=== PATIENT | female | born 1950 | race Caucasian/White ===

== ENCOUNTER → 2020-01-26 09:17 | Outpatient (BNVA) | payer MEDICARE, OTHER, SELFPAY | PROVIDERS: Family Provider Family Medicine; PCP Family Medicine; Visit Provider Family Medicine | DX: I10 Essential (primary) hypertension (principal); F33.1 Major depressive disorder, recurrent, moderate | CPT/HCPCS: 80053; 80061; 85025 ==

== ENCOUNTER → 2020-02-25 10:23 | Outpatient (BNVA) | payer MEDICARE, OTHER, SELFPAY | PROVIDERS: Family Provider Family Medicine; PCP Family Medicine; Visit Provider Family Medicine | DX: I10 Essential (primary) hypertension (principal); M79.671 Pain in right foot | CPT/HCPCS: 82043 ==

== ENCOUNTER 2020-03-12 07:49 | Outpatient (CLI) | payer MEDICARE, OTHER, SELFPAY ==
--- NOTE | 2020-03-12 08:15 | XR_ITS ---
WS: [id number] Right foot, 3 views, 03/12/2020 Clinical Data: Right heel pain Comparison: None. Findings: No fractures or dislocations are seen. No bone destruction or erosion is noted. The joint spaces and soft tissues are normal. There is an Achilles spur and a plantar spur. XR/XR foot RT min 3V* [id number] Impression: Achilles spur and plantar spur.
== END 2020-03-12 07:50 | disposition home or self-care (01) ==
LOC: RADWPI 07:53
PROVIDERS: Family Provider Family Medicine; PCP Family Medicine; Visit Provider Family Medicine
DX: M79.671 Pain in right foot (principal); M76.61 Achilles tendinitis, right leg
CPT/HCPCS: 73630

== ENCOUNTER → 2020-04-19 10:47 | Outpatient (BNVA) | payer MEDICARE, OTHER, SELFPAY | PROVIDERS: Family Provider Family Medicine; PCP Family Medicine; Visit Provider Family Medicine | DX: I10 Essential (primary) hypertension (principal) | CPT/HCPCS: 80048 ==

== ENCOUNTER → 2020-11-08 10:16 | Outpatient (BNVA) | payer MEDICARE, OTHER, SELFPAY | PROVIDERS: Family Provider Family Medicine; PCP Family Medicine; Visit Provider Podiatrist Foot & Ankle Surgery | DX: Z01.812 Encounter for preprocedural laboratory examination (principal); Z20.822 Contact with and (suspected) exposure to COVID-19 | CPT/HCPCS: 87635 ==

== ENCOUNTER 2020-11-12 05:55 | Day surgery (SDC) | payer MEDICARE, OTHER, SELFPAY ==
--- NOTE | 2020-11-11 | SCC_ITS ---
Procedure Done: Right Achilles tendon repair CPT code 00375 1 second of fluoroscopic guidance, for a cumulative dose of 0.02 mGy, was provided to Dr. Ruff by the radiology department. C-arm images of the RIGHT calcaneus were saved for the patient's permanent record. [facility]
[2020-11-11 14:53] VITALS: BMI 40.7
[2020-11-12] VITALS (11 sets, daily range): BP systolic 117–172; BP diastolic 67–100; PULSE 80–96; RESP 16–20; TEMP 36.3–37.6; O2SAT 92–100
--- NOTE | 2020-11-12 06:23 | P.OP_ITS ---
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 Post-op diagnosis: same Post-op Findings: Right Achilles tendinosis with mucoid degeneration of midsubstance and intratendinous calcifications. Right Hu's deformity. Procedure Done: Right Achilles tendon repair CPT code 08684 Right calcaneus Hu's resection CPT code 70539 Implants: Arthrex speed bridge. 3-0 Vicryl, 3-0 nylon. Specimens removed/disposition: None Pathology: none sent Surgeon: Christopher Ruff D.P.M. Associate Financial Advisor: Bello Anesthesia: General Estimated blood loss: Less than 10 mL Tourniquet time: See intraoperative documentation IV fluids: None Urine output: None Complications: None Condition: stable Disposition: PACU Brief History: Ms. Combs is a pleasant 70-year-old female who has had progressive pain and debilitation of her right Achilles tendon and osseous prominence at her right calcaneus. History of Achilles tendon repair with Carrizales glund's resection at the left lower extremity approximately 10 years ago with success of returned activity. Her right lower extremity has followed suit she has failed formal physical therapy, home physical therapy, offloading, stretching, night splint, anti-inflammatories and accommodative shoes. She would like to have the right lower extremity surgically corrected with debridement of Achilles tendon and resection of calcaneal Hu's deformity. I informed her of risks including pain, bleeding, numbness, infection, bruising, swelling, surgical site dehiscence, Achilles tendon rupture, altered gait and altered mechanics, altered range of motion and strength to the right lower extremity. Need for further surgical intervention. Patient was interviewed preoperatively and found to be n.p.o. since midnight. All questions answered to patient's satisfaction. She is accompanied by her . Informed consent signed by the patient myself and her . I initialed the right lower extremity. Patient wishes to proceed, no guarantees written, expressed or implied. Procedure: Under mild sedation the patient was brought to the operating room and while still on the gurney anesthesia was introduced by the anesthesia service, well-padded thigh tourniquet applied to the right thigh. Patient was then placed prone onto the operative table with appropriate padding and offloading. Right lower extremity was then scrubbed, prepped and draped utilizing normal aseptic technique. Right foot and leg was examined a weighted with an Esmarch bandage and the tourniquet inflated to 350 mmHg at the right thigh. Attention was directed to the right ankle where dorsiflexion was appreciated at 8 degrees. Determination was made to not perform a gastrocnemius recession. Attention was then directed to the Achilles tendon which was palpated noted to be thickened and there was osseous prominence both at the skin as well as proximal to the insertion of the posterior superior lateral aspect of the calcaneal tuberosity. At the medial border of the Achilles tendon at the area of the watershed coursing distally in a fishhook fashion a full-thickness flap was incised with a #15 blade down to peritenon this was reflected laterally. There was thickening and dysmorphic peritenon and Achilles tendon interface this was sharply debrided and passed from the operative field. The Achilles tendon was then reflected off the posterior calcaneus from medial to lateral fashion maintaining a small attachment laterally to maintain length. Achilles tendon was debrided sharply with a #15 blade and pickups of mucoid degeneration, thickening and disorganized collagen with intratendinous calcifications being sharply excised and passed from operative field. Once thorough debridement was performed attention was directed to the posterior calcaneus where Hu's deformity was appreciated as well as insertional Achilles calcifications at the lower one third of the posterior calcaneal tuberosity. A sagittal saw was then utilized to transect the posterior calcaneal Hu's deformity with exostosis with the blade oriented inferior posterior to superior anterior with a bone wedge taken approximately 3 cm x 3 cm x 1 cm this was passed per operative field. All rough edges were smoothed and sharp edges rounded with a hand rasp. Intraoperative fluoroscopy confirmed excellent resection of bony overgrowth and noted to be adequate. Incision site was flushed with copious amounts of sterile saline solution. Next utilizing standard technique per manufacture recommendation and package insert and Achilles speed bridge was utilized with a total of 4 bone anchors with excellent footprint approximately 1.5 cm apart anchoring the Achilles tendon back to bone with excellent bone to tendon interface and tendon out to length. Repair was firm and tested intraoperatively and was able to withstand dorsiflexion of the right ankle with excellent integrity. Incision site was flushed with copious amounts of sterile saline solution. Dogears at the medial lateral border of the Achilles tendon were transected in an oblique direction. Amniotic biologic graft tacked down to the posterior Achilles to reduce inflammation and improve healing and reduce adhesions. This was done utilizing 5-0 Monocryl. Peritenon and subcutaneous tissue closed utilizing 3-0 Vicryl. Skin reapproximated utilizing 3-0 nylon in a horizontal mattress technique. Incision site was dressed with jumpstart, sterile 4 x 4's, Kerlix and application of well-padded multilayer compressive Peck splint with ankle in plantarflexion. Tourniquet was deflated and a prompt hyperemic response was noted to the distal digits of the right foot. Patient was transferred to the PACU with vital signs stable and vascular status intact. Following a period of postoperative monitoring she will be discharged home is to remain strict nonweightbearing and elevate her right foot at all times while at rest she has wheelchair, crutches and knee scooter to facilitate this. She was provided a prescription for hydrocodone to be taken judiciously as needed for pain I advised her to take a baby aspirin this will be 81 mg once daily for DVT prophylaxis. Follows up next week in podiatry clinic Sunday morning. She was provided my cell phone number will call me with any postoperative questions or concerns.
--- NOTE | 2020-11-12 06:23 | W.PM.OPSUD ---
Surgery/Procedure H&P Update DATE OF PROCEDURE: November 12, 2020 DATE H&P PERFORMED: 10/25/20 H&P UPDATE INFORMATION: I have reviewed H&P completed within last 30 days, I have examined patient prior to procedure and H&P is in [facility] on date indicated PREOP DIAGNOSIS: Right Hu's PLANNED PROCEDURE: Operation Date: 11/12/20 07:00 Proposed Procedures p Haglunds Resection [id number] M92.61(Right) - POORNIMA Dubose Gastrocnemius Recession(Right) - POORNIMA Dubose Flexor Hallucis Longus Tendon Transfer(Right) - Christopher Ruff DPM
[2020-11-12] MEDS: sodium chloride 0.9% 1,000 ML 30 ML IV (06:45)
--- NOTE | 2020-11-12 06:54 | ANES.PREANE2 ---
Pre-Anesthetic Assessment Pre-Anesthetic Assessment: Height/Weight: Height 1.7 m Weight 117.934 kg Temp Pulse Resp BP Pulse Ox 99.6 F 91 18 172/100 94 11/12/20 06:28 11/12/20 06:28 11/12/20 06:28 11/12/20 06:28 11/12/20 06:28 Preop Diagnosis: Right Hu's Proposed Procedure: Operation Date: 11/12/20 07:00 Proposed Procedures p Haglunds Resection [id number] M92.61(Right) - Christopher Ruff DPM s Gastrocnemius Recession(Right) - Christopher Ruff DPM s Flexor Hallucis Longus Tendon Transfer(Right) - Christopher Ruff DPM Was Beta John taken within 24 hours: N/A Was Clonidine taken within 24 hours: N/A Last intake: Intake Last Liquid Date 11/11/20 Last Liquid Time 21:30 Last Solid Date 11/11/20 Last Solid Time 19:30 Social: Social History: No alcohol and No tobacco Exam: Pre-Anes Outpt Exam: alert, oriented x 3, clear to auscultation bilaterally and regular rate & rhythm Airway: Submandibular: WNL Cervical ROM: WNL MP: 2 Dentition: Full CV/HEM: CV/HEM: HTN Metabolic: Metabolic: Morbid obesity Neuropsych: Neuropsych: Anxiety and Depression Anesthetic Plan: ASA status: 3 Anesthesia: General Risk of > 500 ml blood loss (7ml/kg in children): No Meds/Allergies Current Medications: Current Medications Generic Name Dose Route Start Last Admin Trade Name Freq PRN Reason Stop Dose Admin Sodium Chloride 1,000 mls @ 30 ml s/hr 11/12/20 06:45 11/12/20 06:45 Sodium Chloride 0.9% IV 30 mls/hr .Q24H TAWNY Administration PFSH Anesthesia PFSH: Medical History (Updated 11/09/20 @ 09:46 by Christopher Ruff DPM) Essential hypertension Surgical History H/O cataract extraction History of cholecystectomy Social History Smoking and tobacco status: never smoked Data Anesthesia Cardiac Studies: No Data to Display
[2020-11-12] MEDS: scopolamine 1.5 Patch 1 PATCH TRANSDERMA (06:58)
--- NOTE | 2020-11-12 08:38 | XR_ITS ---
WS: [id number] Lateral view of the right foot including the calcaneus, 11/12/2020 Clinical Data: post op Comparison: Right foot, 03/12/2020. Findings: The plantar spur is visible. The Achilles spur and posterior superior calcaneus have been revised. XR/XR calcaneus RT min 2V [id number] Impression: Surgery to remove Achilles spur and repair insertion of Achilles tendon.
[2020-11-12] MEDS: ondansetron 2 mg/ML SDV 2 mL 4 MG IVP (08:52)
[2020-11-12] MEDS: metoclopramide 5 mg/mL SDV 2 mL 10 MG IVP ×2 (08:55→09:00)
[2020-11-12] MEDS: dexamethasone 4 mg/mL INJ IVP ×2 (09:05→09:10)
[2020-11-12] MEDS: diphenhydrAMINE 50 mg/mL SDV 1mL 12.5 MG IVP (09:30)
--- NOTE | 2020-11-12 12:25 | ANE.PACU2 ---
Inpatient post-anesthesia follow up: Airway intact: Yes Vital signs: Temperature 97.9 F Pulse Rate 80 Respiratory Rate 18 Blood Pressure 122/75 Pulse Oximetry 93 Oxygen Delivery Me thod Room Air Oxygen Flow Rate 2 Fraction of Inspir ed Oxygen Hydration adequate: Yes Nausea and vomiting: No Pain level: 2 Mental status: Baseline
== END 2020-11-12 10:17 | disposition home or self-care (01) ==
PROVIDERS: PCP Family Medicine; Visit Provider Podiatrist Foot & Ankle Surgery
PROC: (CPT 27654; principal; 2020-11-12 07:00)
PROC: (CPT 27687; 2020-11-12 07:00)
PROC: (CPT 27691; 2020-11-12 07:00)
DX: M76.61 Achilles tendinitis, right leg (principal); M92.61 Juvenile osteochondrosis of tarsus, right ankle; I10 Essential (primary) hypertension; E66.01 Morbid (severe) obesity due to excess calories; Z68.41 Body mass index [BMI] 40.0-44.9, adult; F41.9 Anxiety disorder, unspecified; F32.9 Major depressive disorder, single episode, unspecified
CPT/HCPCS: 27654; 28118; 73650; 76000; 96365; 96374; C1713; C1762; J0360; J0690; J1100; J1200; J2405; J2704; J2710; J2765; J3010; J3490; J7030

== ENCOUNTER 2020-11-25 14:50 | Outpatient (CLI) | payer MEDICARE, OTHER, SELFPAY | END 2020-11-25 14:51 | disposition home or self-care (01) | LOC: SPT 14:51 | PROVIDERS: PCP Family Medicine; Visit Provider Podiatrist Foot & Ankle Surgery | DX: Z46.89 Encounter for fitting and adjustment of other specified devices (principal); M92.61 Juvenile osteochondrosis of tarsus, right ankle | CPT/HCPCS: 97760; L4361 ==

== ENCOUNTER 2021-01-07 11:31 | Outpatient (CLI) | payer MEDICARE, OTHER, SELFPAY | END 2021-01-07 11:32 | disposition home or self-care (01) | LOC: SPT 11:32 | PROVIDERS: PCP Family Medicine; Visit Provider Podiatrist Foot & Ankle Surgery | DX: Z98.890 Other specified postprocedural states (principal) | CPT/HCPCS: L3332 ==

== ENCOUNTER → 2021-03-14 10:12 | Outpatient (BNVA) | payer MEDICARE, OTHER, SELFPAY | PROVIDERS: PCP Family Medicine; Visit Provider Family Medicine Adult Medicine | DX: Z20.822 Contact with and (suspected) exposure to COVID-19 (principal); R06.02 Shortness of breath; R79.81 Abnormal blood-gas level; B34.9 Viral infection, unspecified; I10 Essential (primary) hypertension; Z68.41 Body mass index [BMI] 40.0-44.9, adult | CPT/HCPCS: 80053; 85025; 86141; 87635 ==

== ENCOUNTER → 2021-10-13 08:46 | Outpatient (BNVA) | payer MEDICARE, OTHER, SELFPAY | PROVIDERS: PCP Family Medicine; Visit Provider Family Medicine | DX: I10 Essential (primary) hypertension (principal); F33.1 Major depressive disorder, recurrent, moderate; Z12.31 Encounter for screening mammogram for malignant neoplasm of breast | CPT/HCPCS: 80053; 80061 ==

== ENCOUNTER 2021-12-02 07:45 | Outpatient (CLI) | payer MEDICARE, OTHER, SELFPAY ==
--- NOTE | 2021-12-02 07:57 | MM_ITS ---
WS: [id number] SCREENING 3D TOMOSYNTHESIS DIGITAL MAMMOGRAM WITH CAD HISTORY: screening mammogram COMPARISON: 11/20/2014 and 10/24/2012 Bilateral CC and MLO views submitted. Computer aided detection analyzed. Breast composition: There are scattered areas of fibroglandular density. No suspicious masses, microc alcifications or architectural distortion. Biopsy clip in the posterior medial LEFT breast. MM/[place] [id number] IMPRESSION: BI-RADS: 2-Benign FOLLOW UP: 1 Year Follow-up
== END 2021-12-02 07:46 | disposition home or self-care (01) ==
PROVIDERS: PCP Family Medicine; Visit Provider Family Medicine
DX: Z12.31 Encounter for screening mammogram for malignant neoplasm of breast (principal)
CPT/HCPCS: 77063; 77067

== ENCOUNTER → 2022-03-03 10:53 | Outpatient (BNVA) | payer MEDICARE, OTHER, SELFPAY | PROVIDERS: PCP Family Medicine; Visit Provider Orthopaedic Surgery | DX: W18.30XA Fall on same level, unspecified, initial encounter (principal); S42.201A Unspecified fracture of upper end of right humerus, initial encounter for closed fracture | CPT/HCPCS: 73030; 99203; 99204 ==

== ENCOUNTER 2022-03-06 14:45 | Observation (INO) | payer MEDICARE, OTHER, SELFPAY ==
[2022-03-03 14:41] VITALS: BMI 36.6
[2022-03-06] VITALS (15 sets, daily range): BP systolic 120–157; BP diastolic 65–93; PULSE 69–84; RESP 8–22; TEMP 36.3–36.8; O2SAT 90–97
--- NOTE | 2022-03-06 08:21 | ANES.PREANE2 ---
Pre-Anesthetic Assessment Height/Weight: Height 1.7 m Weight 106.141 kg Temp Pulse Resp BP Pulse Ox O2 Del Method 98.3 F 75 16 157/87 97 03/06/22 08:00 03/06/22 08:00 03/06/22 08:00 03/06/22 08:00 03/06/22 08:00 03/06/22 08:03 Preop Diagnosis: Comminuted fracture right proximal humerus Operation Date: 03/06/22 09:40 Proposed Procedures p Total Reverse Shoulder Arthroplasty 58012/S42.201A(Right) - Yusuf Benedict MD Familial anesthetic complications: PONV Was Beta John taken within 24 hours: Yes Was Clonidine taken within 24 hours: Yes Last intake: Intake Last Liquid Date 03/06/22 Last Liquid Time 21:00 Last Solid Date 03/05/22 Last Solid Time 15:00 Social No alcohol and No tobacco Exam alert, oriented x 3, clear to auscultation bilaterally and regular rate & rhythm Airway Mallampati: Class II Dentition: full CV/HEM Hypertension Metabolic Morbid Obesity Anesthetic Plan ASA status: 2 Anesthesia: General and Regional (specify below) Risk of > 500 ml blood loss (7ml/kg in children): No Medications/Allergies Home Medications Medication Instructions Recorded Confirmed Last Taken Type biotin 10,000 mcg capsule 10,000 mcg PO .ONCE DAILY 11/25/19 03/06/22 03/05/22 History cetirizine 10 mg capsule (Zyrtec) 10 mg PO .ONCE DAILY 11/25/19 03/06/22 03/05/22 History amlodipine 5 mg tablet 5 mg PO BID 90 days #180 tabs 10/13/21 03/06/22 03/05/22 Rx carvedilol 12.5 mg tablet 12.5 mg PO BID 90 days #180 tabs 10/13/21 03/06/22 03/06/22 06:15 Rx citalopram 40 mg tablet 40 mg PO DAILY #90 tabs 10/13/21 03/06/22 03/05/22 Rx clonidine HCl 0.1 mg tablet 0.1 mg PO BID #180 tabs 10/13/21 03/06/22 03/06/22 06:15 Rx quinapril 40 mg tablet 40 mg PO BID #180 tabs 10/13/21 03/06/22 03/05/22 Rx oxycodone 5 mg tablet 5 mg PO Q6H PRN pain 5 days #20 02/28/22 03/06/22 03/05/22 22:00 Rx tabs Allergies Allergy/AdvReac Type Severity Reaction Status Date / Time No Known Allergies Allergy Verified 03/06/22 08:08 [facility] Anesthesia Medical History Abnormal pulse oximetry Acute viral syndrome Essential hypertension Shortness of Breath Surgical History H/O cataract extraction H/O foot surgery History of cholecystectomy Social History Smoking and tobacco status: never smoked Data Anesthesia Cardiac Studies: No Data to Display
[2022-03-06] MEDS: sodium chloride 0.9% 1,000 ML 30 ML IV (08:45)
[2022-03-06 09:01] LABS: Basophils # 0.1 10^3/uL (0.0-0.1); Basophils % 0.6 %; Eosinophils # 0.3 10^3/uL (0.0-0.8); Eosinophils % 2.4 %; Hematocrit 36.5 % (37.0-47.0); Hemoglobin 11.6 g/dL (11.5-15.3); Lymphocytes # 1.7 10^3/uL (0.8-4.8); Lymphocytes % 15.5 %; Mean Corpuscular HGB Conc 31.8 g/dL (30.0-36.0); Mean Corpuscular Hemoglobin 28.4 pg (28.0-34.0); Mean Corpuscular Volume 89.2 fl (81-99); Mean Platelet Volume 10.2 fL (7.4-10.4); Monocytes # 0.6 10^3/uL (0.2-0.9); Monocytes % 5.8 %; Neutrophils # 8.13 10^3/uL (1.8-7.7); Neutrophils % 74.9 %; Nucleated Red Blood Cells % 0 %; Platelet Count 341 10^3/cmm (130-400); Red Blood Count 4.09 10^6/uL (4.1-5.3); Red Cell Distribution Width 13.6 % (12.1-15.1); White Blood Count 10.9 10^3/uL (4.0-10.0)
--- NOTE | 2022-03-06 09:08 | P.HP_ITS ---
Same Day Surgery H&P Indication for Procedure/HPI DATE OF PROCEDURE: March 04, 2022 CHIEF COMPLAINT/INDICATIONFOR SURGICAL PROCEDURE: Fracture right proximal humerus PREOP DIAGNOSIS: Comminuted fracture right proximal humerus PLANNED PROCEDURE: Operation Date: 03/06/22 09:40 Proposed Procedures p Total Reverse Shoulder Arthroplasty 38623/S42.201A(Right) - Yusuf Benedict MD Ms. Combs is a 71-year-old female who fell while in [place] on 02/24/2022 with a resulting right proximal humerus fracture. He is previously active. She travels with her who is a photographer assistant. She is scheduled for a reverse total shoulder Medications/Allergies* Home Medications Medication Instructions Recorded Confirmed Type biotin 10,000 mcg capsule 10,000 mcg PO .ONCE DAILY 11/25/19 03/06/22 History cetirizine 10 mg capsule (Zyrtec) 10 mg PO .ONCE DAILY 11/25/19 03/06/22 History Allergies/Adverse Reactions Allergy/AdvReac Type Severity Reaction Status Date / Time No Known Allergies Allergy Verified 03/06/22 08:08 Pertinent History/Comorbid Conditions* Medical History (Updated 02/28/22 @ 13:17 by Griselda Goetz DO) Abnormal pulse oximetry Acute viral syndrome Essential hypertension Shortness of Breath Surgical History (Updated 12/02/20 @ 10:20 by Griselda Gotez DO) H/O cataract extraction H/O foot surgery History of cholecystectomy Social History Smoking and tobacco status: never smoked Pertinent Exam Findings alert, oriented x 3, clear to auscultation bilaterally, regular rate & rhythm and operative site marked Recommendations Surgery/Procedure today Other Plans: Proceed with right reverse total shoulder today. Coding Level of Care Code Acute Painter Maintenance for Dharmesh Basilio
--- NOTE | 2022-03-06 09:35 | ANES.PROC ---
Anesthesia Procedures Procedure/Date: 03/06/22 Nerve Block ^: Nerve Block 1: Main Anesthesia: general anesthesia Time Out Performed: Yes Consent: requested by attending/covering physician, from patient, risks and benefits reviewed and patient agrees to proceed Nerve block location: interscalene (R) Anesthesia monitors applied: pulse oximetry, EKG and BP cuff Nerve block position: semi sitting Anesthetic Used: ropivicaine 0.5% (20 ml) and with decadron (3 mg) Ultrasound used to: recognize landmarks, visualize and ID brachial plexus and visualize and ID interscalene groove Nerve Stimulator Used?: No Interscalene/Femoral BLK: 2 stimuplex 22 g needle used for position and inplane approach, other needle and visualize local anesthetic spread Injection: neg aspiration of heme and paresthesia +/- Patient Tolerated Procedure: well and no complications Complications: none
[2022-03-06 09:49] LABS: Blood Urea Nitrogen 11 mg/dL (8-23); Calcium 8.8 mg/dL (8.5-10.5); Carbon Dioxide 31 mmol/L (22-29); Chloride 102 mmol/L (98-107); Glucose 100 mg/dL (65-115); Osmolality Calculated 297 mOsm/kg (285-295); Sodium 144 mmol/L (136-145)
[2022-03-06] MEDS: CELEcoxib 200 mg Capsule 400 MG PO (09:52)
[2022-03-06] MEDS: acetaminophen 500 mg Tablet 1000 MG PO ×2 (09:52→17:14)
[2022-03-06] MEDS: oxyCODONE 20 mg ER (12 HR) Tablet PO (09:52)
[2022-03-06] MEDS: gabapentin 300 mg Capsule PO (09:52)
[2022-03-06 09:55] LABS: Anion Gap 14.8 (5-19); Potassium 3.8 mmol/L (3.5-5.1)
[2022-03-06] MEDS: ceFAZolin 2,000 MG in sodium chloride 0.9% (plus) 50 ML 100 MG IV (09:58)
[2022-03-06] MEDS: tranexamic acid 1,000 mg/10mL SDV 1000 MG IV (10:40)
[2022-03-06] MEDS: sodium chloride 0.9% 100 mL Bag XX (10:53)
--- NOTE | 2022-03-06 10:55 | SUR.OPER ---
family updated of surgical status
--- NOTE | 2022-03-06 12:25 | PM.OP ---
Operative Report Date of procedure: March 06, 2022 Pre-op diagnosis: Preop Diagnosis Fracture right proximal humerus Post-op diagnosis: same Procedure done: Right reverse total shoulder Implants: 1) Tornier Aequalis Flex Revive 9 x 130 mm partially coated stem 2) Aequalis Flex Revive 9 mm proximal body 3) Flex Shoulder System reversed tray +0mm 4) Flex Shoulder System 36 mm +6 mm reversed insert 5) Aequalis PerFORM Reversed 25 mm standard baseplate 6) Aequalis perForm Reversed 36 mm standard glenosphere 7) Glenoid screws: central 30 mm, superior 22 mm inferior 26 mm, posterior 14 mm Pathology: none sent Surgeon: Yusuf Benedict Anesthesia: General and Nerve Block (Interscalene block) Estimated blood loss (mL): 100 Findings: Patient had a comminuted fracture of the right proximal humerus with comminuted involvement of the greater and lesser tuberosities and a displaced fracture of the humeral head Condition: stable Disposition: PACU Procedure: An intrascalene blocks provided the holding area. The patient was taken to the operating room and given a general anesthesia. They were given 2 g of Ancef. A Rocha stand was covered and use to support support the arm A timeout was performed. A 10 cm long incision was made over the deltopectoral groove and dissection carried out with a scalpel blade to the deltopectoral interval. The cephalic vein was identified and retracted laterally. Digital dissection was accomplished to free lesions beneath the deltoid and beneath the coracobrachialis musculature. An Darwin medium tissue protector was used to retract the pectoralis major and the deltoid. The biceps was released and the proximal bicipital groove. The attachments of the subscapularis to the lesser tuberosity and supraspinatus and infraspinatus to the greater tuberosity were identified those tuberosities mobilized. The greater tuberosity was secured with 4 #2 braided polyester sutures passed around the greater tuberosity at the tenderness insertion and 2 #2 sutures about around the lesser tuberosity at the tendinous insertion. The free humeral head was then removed. Utilizing electrocautery the glenoid was exposed circumferentially. The centering guide was used to place the central guidepin and the glenoid ream down to sclerotic bone. The guidepin was placed in a 10 degree inferior tilt. A 25 mm Tornier Aequalis PerFORM REversed glenoid baseplate was then secured in place with a central 30 mm screw, a superior locking 22 mm screw, an inferior locking 26 mm screw, and a posterior 14 mm screw. A standard 36 mm Aequalis perFORM ReversedGlenosphere was then placed. Attention was then focused on the humerus. Sequential reaming of the humeral canal was accomplished up to 9 mm. AThe 9 Aqualis Flex REvive body and stem with satisfactory stability.. A trial reduction with the 36, +6 mm reversed insert provided adequate stability. A small drill hole was made in the anterior cortex of the humerus and a braided #2 suture loop passed into the canal. the final humeral stem and proximal body was prepared for tuberosity repair. The loop suture to the anterior cortex was passed around the stem and the 4 braided sutures passed through the greater tuberosity were passed through the eyelet on the medial stem. The stem and body were then press-fit into place. The Flex Shoulder system reverse tray and insert were placed and the shoulder reduced with a stable reduction. Initially, 2 of the greater tuberosity sutures were secured across the greater tuberosity to the posterior prosthesis. The other 2 sutures were passed with a free needle through the subscapularis and secured drop further reinforcing the greater tuberosity drawing the lesser tuberosity to the humerus. Finally the suture exiting the anterior hole and the humerus was passed in a [id number] fashion through the tendinous insertions on the greater and lesser tuberosity. The wound was irrigated with a solution of 100 cc of saline with 1 g of tranexamic acid and 80 mg of gentamicin. The deltopectoral interval was closed with 0 Vicryl. The subcutaneous tissues were closed with 2-0 Stratafix. The skin was closed with a running 4-0 Stratafix. Sterile dressings were applied. The patient was placed in a immobilizer, extubated and taken to recovery room in stable condition.
--- NOTE | 2022-03-06 12:36 | XR_ITS ---
WS: [id number] XR shoulder RT min 2V* [id number] REASON FOR EXAM: Right reverse total shoulder FINDINGS: Reverse total right shoulder arthroplasty. Prosthetic components are in proper position and alignment. XR/XR shoulder RT min 2V* [id number] IMPRESSION: Total right shoulder arthroplasty without abnormality as above.
--- NOTE | 2022-03-06 13:45 | ANE.PACU2 ---
Inpatient post-anesthesia follow up: Airway intact: Yes Vital signs: Temperature 98.0 F Pulse Rate 72 Respiratory Rate 16 Blood Pressure 135/75 Pulse Oximetry 92 Oxygen Delivery Me thod Nasal Cannula Oxygen Flow Rate 2 Fraction of Inspir ed Oxygen Hydration adequate: Yes Nausea and vomiting: No Pain level: 1 Mental status: Baseline
--- NOTE | 2022-03-06 14:42 | PC.NURSE ---
Report given @ 1440 to [facility] for admission to room 268
[2022-03-06] MEDS: lisinopril 20 mg Tablet 40 MG PO (17:13)
[2022-03-06] MEDS: CELEcoxib 200 mg Capsule PO (17:13)
[2022-03-06] MEDS: amlodipine 5 mg Tablet PO (17:13)
[2022-03-06] MEDS: carvedilol 12.5 mg Tablet PO (17:13)
[2022-03-06] MEDS: ceFAZolin 1,000 MG in sodium chloride 0.9% (plus) 50 ML 100 MG IV (17:14)
[2022-03-06] MEDS: cloNIDine 0.1 mg Tablet PO (17:14)
[2022-03-06] MEDS: sodium chloride 0.9% 1,000 ML 80 ML IV (17:14)
--- NOTE | 2022-03-06 19:27 | PC.NURSE ---
SHIFT SUMMARY: PT HAS HAD A GOOD, UNEVENTFUL SHIFT. PT HAS NO COMPLAINTS OF PAIN. PT IS RESTING COMFORTABLY IN BED. THERE IS SOME BRUISING AND NONPITTING EDEMA TO R UPPER EXTREMITY. PT HAS BEEN UP AND AMBULATING AND TOLERATING IT WELL. BEDSIDE REPORT WITH CRISTÓBAL JONES. ALL QUESTIONS ANSWERED. PT STILL HAS NO COMPLAINTS OF PAIN AND HAS REQUESTED FOR US TO LET HER REST.
[2022-03-06] MEDS: oxyCODONE 5 mg IR Tab/Cap PO (23:53)
[2022-03-07 00:38] VITALS: BP 136/74; PULSE 72; RESP 17; TEMP 36.7; O2SAT 96
[2022-03-07] MEDS: acetaminophen 500 mg Tablet 1000 MG PO (02:12)
[2022-03-07] MEDS: ceFAZolin 1,000 MG in sodium chloride 0.9% (plus) 50 ML 100 MG IV (02:13)
[2022-03-07 04:52] VITALS: BP 130/74; PULSE 71; RESP 16; TEMP 36.6; O2SAT 93
[2022-03-07] MEDS: sodium chloride 0.9% 1,000 ML 80 ML IV (05:53)
[2022-03-07 06:08] VITALS: RESP 16
[2022-03-07] MEDS: oxyCODONE 5 mg IR Tab/Cap PO (06:08)
[2022-03-07 08:00] VITALS: BP 182/74; PULSE 86; RESP 18; TEMP 36.6; O2SAT 93
[2022-03-07 08:24] VITALS: BP 182/74
[2022-03-07] MEDS: cloNIDine 0.1 mg Tablet PO (08:24)
[2022-03-07] MEDS: amlodipine 5 mg Tablet PO (08:24)
[2022-03-07] MEDS: lisinopril 20 mg Tablet 40 MG PO (08:25)
[2022-03-07] MEDS: CELEcoxib 200 mg Capsule PO (08:25)
[2022-03-07] MEDS: aspirin 325 mg EC Tablet PO (08:25)
[2022-03-07] MEDS: carvedilol 12.5 mg Tablet PO (08:25)
--- NOTE | 2022-03-07 09:21 | P.DS_ITS ---
Discharge Providers Date of Admission: 03/06/22 14:45 Date of Discharge: March 07, 2022 Attending Provider at Admission: Yusuf Benedict MD Attending Provider at Discharge: Yusuf Benedict MD Primary Care Provider: Griselda Goetz DO Diagnoses at Discharge Discharge Diagnosis (1) Closed right humeral fracture: Status: Resolved (2) Status post replacement of right shoulder joint: Status: Acute Reason for Visit Reason for Visit: closed frac of right proximal humerus S42.201 Brief History: The patient is a 71-year-old female who sustained sustained a fall on a cement surface with a comminuted displaced fracture of the proximal humerus. She has active and reverse total shoulder arthroplasty was chosen to restore pain and function Hospital Course Hospital Course The patient tolerated surgery well. They remained hemodynamically stable. They was begun on aspirin and sequential compression dressings for DVT prophylaxis. The patient was mobilized with therapy beginning the day of surgery and by the first postoperative day independent with ambulation. As the pain was adequately controlled and they were fully mobile they were discharged home. Physical Exam Narrative: On the day of discharge the patient's dressing was clean and dry. The patient's would fire the deltoid and their biceps. No distal neurovascular deficits were noted. Discharge Data Studies Completed and Pending Completed Studies During Hospitalization Category Date Time Status XR shoulder RT min 2V* [id number] Routine Exams 03/06/22 12:36 Completed Radiology Impressions Shoulder X-Ray 03/06/22 12:36 IMPRESSION: Total right shoulder arthroplasty without abnormality as above. Laboratory Results WBC 10.9 10^3/uL (4.0-10.0) H 03/06/22 08:37 RBC 4.09 10^6/uL (4.1-5.3) L 03/06/22 08:37 Hgb 11.6 g/dL (11.5-15.3) 03/06/22 08:37 Hct 36.5 % (37.0-47.0) L 03/06/22 08:37 MCV 89.2 fl (81-99) 03/06/22 08:37 MCH 28.4 pg (28.0-34.0) 03/06/22 08:37 MCHC 31.8 g/dL (30.0-36.0) 03/06/22 08:37 RDW 13.6 % (12.1-15.1) 03/06/22 08:37 Plt Count 341 10^3/cmm (130-400) 03/06/22 08:37 MPV 10.2 fL (7.4-10.4) 03/06/22 08:37 Neut % (Auto) 74.9 % 03/06/22 08:37 Lymph % (Auto) 15.5 % 03/06/22 08:37 Parke % (Auto) 5.8 % 03/06/22 08:37 Eos % (Auto) 2.4 % 03/06/22 08:37 Baso % (Auto) 0.6 % 03/06/22 08:37 Neut # (Auto) 8.13 10^3/uL (1.8-7.7) H 03/06/22 08:37 Lymph # (Auto) 1.7 10^3/uL (0.8-4.8) 03/06/22 08:37 Parke # (Auto) 0.6 10^3/uL (0.2-0.9) 03/06/22 08:37 Eos # (Auto) 0.3 10^3/uL (0.0-0.8) 03/06/22 08:37 Baso # (Auto) 0.1 10^3/uL (0.0-0.1) 03/06/22 08:37 Nucleated RBC % (auto) 0 % 03/06/22 08:37 Nucleated RBCs # 0.0 /100WBC 03/06/22 08:37 Sodium 144 mmol/L (136-145) 03/06/22 08:47 Potassium 3.8 mmol/L (3.5-5.1) 03/06/22 08:47 Chloride 102 mmol/L (98-107) 03/06/22 08:47 Carbon Dioxide 31 mmol/L (22-29) H 03/06/22 08:47 Anion Gap 14.8 (5-19) 03/06/22 08:47 BUN 11 mg/dL (8-23) 03/06/22 08:47 Creatinine 0.5 mg/dL (0.5-0.9) 03/06/22 08:47 GFR Calculation 122.0 mL/min (90-130) 03/06/22 08:47 Glucose 100 mg/dL (65-115) 03/06/22 08:47 Calculated Osmolality 297 mOsm/kg (285-295) H 03/06/22 08:47 Calcium 8.8 mg/dL (8.5-10.5) 03/06/22 08:47 Vitals Last Vital Signs Temp 97.8 F 03/07/22 08:00 Pulse 86 03/07/22 08:00 Resp 18 03/07/22 08:00 BP 182/74 03/07/22 08:24 Pulse Ox 93 03/07/22 08:00 O2 Del Method 03/07/22 08:00 O2 Flow Rate 2 03/06/22 14:00 Discharge Plan Discharge Patient Disposition: Home Condition: Stable Prescriptions: New oxycodone 5 mg Tablet 5 - 10 mg PO Q4H PRN (Reason: Moderate To Severe Pain) 7 Days Qty: 40 0RF acetaminophen 500 mg Tablet 1,000 mg PO Q8H 14 Days Qty: 84 0RF celecoxib 200 mg Capsule 200 mg PO BID 14 Days Qty: 28 0RF aspirin 325 mg Tablet,Delayed Release (Dr/Ec) 325 mg PO DAILY 30 Days Qty: 30 0RF Continued biotin 10,000 mcg capsule 10,000 mcg PO .ONCE DAILY Zyrtec 10 mg capsule 10 mg PO .ONCE DAILY amlodipine 5 mg tablet 5 mg PO BID 90 Days Qty: 180 1RF carvedilol 12.5 mg tablet 12.5 mg PO BID 90 Days Qty: 180 1RF Rx Instructions: must administer with a meal/food clonidine HCl 0.1 mg tablet 0.1 mg PO BID Qty: 180 1RF quinapril 40 mg tablet 40 mg PO BID Qty: 180 1RF citalopram 40 mg tablet 40 mg PO DAILY Qty: 90 1RF oxycodone 5 mg tablet 5 mg PO Q6H PRN (Reason: pain) 5 Days Qty: 20 0RF Discharge Orders: Discharge Order (Routine); Ordered 03/07/22 Ordered By: Yusuf Benedict Referrals: Terry Art FNP [[employer]] - 03/10/22 8:00 am Discharge Diet: Advance as tolerated Discharge Activity: Limit activity as instructed Activity Restrictions/Additional Instructions: Leave right arm in immobilizer except when performing exercises or showering Range of motion elbow wrist and hand as instructed Okay to shower with dressing in place Discharge Attestations Time Spent in Discharge Care*: other Quality Metrics Clinical Quality Measures [ No reported AMI, CVA or VTE this stay] Coding Level of Care Code Acute g [facility] note Diagnoses Closed right humeral fracture S42.301A Status post replacement of right shoulder joint Z96.611
[2022-03-07 09:44] VITALS: BP 182/74; PULSE 86; RESP 18; TEMP 36.6; O2SAT 93
== END 2022-03-07 09:59 | disposition home or self-care (01) ==
LOC: MEDSURG 14:47
PROVIDERS: Anesthesiology; Admitting Provider Orthopaedic Surgery; PCP Family Medicine; Visit Provider Orthopaedic Surgery
PROC: (CPT 23472; principal; 2022-03-06 09:20)
DX: S42.301A Unspecified fracture of shaft of humerus, right arm, initial encounter for closed fracture (principal); W19.XXXA Unspecified fall, initial encounter; I10 Essential (primary) hypertension; E66.01 Morbid (severe) obesity due to excess calories; Z68.36 Body mass index [BMI] 36.0-36.9, adult
CPT/HCPCS: 23472; 73030; 80048; 85025; 97165; C1713; C1776; G0378; J0690; J1100; J1200; J1580; J2405; J2704; J2765; J2795; J3010; J3490; J7030

== ENCOUNTER → 2022-03-10 07:51 | Outpatient (BNVA) | payer MEDICARE, OTHER, SELFPAY | PROVIDERS: PCP Family Medicine; Visit Provider Nurse Practitioner Family | DX: Z96.611 Presence of right artificial shoulder joint (principal) | CPT/HCPCS: 99024 ==

== ENCOUNTER → 2022-03-31 08:30 | Outpatient (BNVA) | payer MEDICARE, OTHER, SELFPAY | PROVIDERS: PCP Family Medicine; Visit Provider Nurse Practitioner Family | DX: Z96.611 Presence of right artificial shoulder joint (principal) | CPT/HCPCS: 73030; 99024 ==

== ENCOUNTER 2022-04-05 09:38 | Outpatient (RCR) | payer MEDICARE, OTHER, SELFPAY | END 2022-04-28 23:59 | disposition home or self-care (01) | LOC: SPT 09:38 | PROVIDERS: PCP Family Medicine; Visit Provider Nurse Practitioner Family | DX: Z47.89 Encounter for other orthopedic aftercare (principal); Z96.611 Presence of right artificial shoulder joint | CPT/HCPCS: 97110; 97140; 97161 ==

== ENCOUNTER 2022-04-29 06:00 | Outpatient (RCR) | payer MEDICARE, OTHER, SELFPAY | END 2022-05-29 23:59 | disposition home or self-care (01) | LOC: SPT 06:00 | PROVIDERS: PCP Family Medicine; Visit Provider Nurse Practitioner Family | DX: Z96.611 Presence of right artificial shoulder joint (principal); Z47.89 Encounter for other orthopedic aftercare | CPT/HCPCS: 97110; 97530 ==

== ENCOUNTER → 2022-05-05 09:05 | Outpatient (BNVA) | payer MEDICARE, OTHER, SELFPAY | PROVIDERS: PCP Family Medicine; Visit Provider Nurse Practitioner Family | DX: Z96.611 Presence of right artificial shoulder joint (principal); G89.18 Other acute postprocedural pain; M25.519 Pain in unspecified shoulder | CPT/HCPCS: 73030; 99024 ==

== ENCOUNTER → 2022-08-04 09:30 | Outpatient (BNVA) | payer MEDICARE, OTHER, SELFPAY | PROVIDERS: PCP Family Medicine; Visit Provider Nurse Practitioner Family | DX: Z96.611 Presence of right artificial shoulder joint (principal) | CPT/HCPCS: 73030; 99213 ==

== ENCOUNTER → 2022-10-12 08:25 | Outpatient (BNVA) | payer MEDICARE, OTHER, SELFPAY | PROVIDERS: PCP Family Medicine; Visit Provider Family Medicine | DX: I10 Essential (primary) hypertension (principal) | CPT/HCPCS: 80053; 80061; 82043; 85025 ==

== ENCOUNTER 2023-01-01 13:15 | Outpatient (CLI) | payer MEDICARE, OTHER, SELFPAY ==
--- NOTE | 2023-01-01 13:21 | MM_ITS ---
WS: [id number] BILATERAL 3D TOMOSYNTHESIS DIGITAL SCREENING MAMMOGRAPHY WITH CAD CLINICAL INFORMATION: screening mammogram HISTORY: Screening mammogram. No current complaints. COMPARISON: 2021 TECHNIQUE: Bilateral CC and MLO views. FINDINGS: Scattered fibroglandular densities bilaterally. No suspicious focal mass, asymmetry, calcifications, or architectural distortion. No evidence of malignancy. LEFT breast biopsy clip posterior medial LEFT breast MM/[place] [id number] IMPRESSION: BI-RADS: 2-Benign FOLLOW UP: 1 Year Follow-up Recommend return to annual screening mammography.
== END 2023-01-01 13:16 | disposition home or self-care (01) ==
LOC: RAD 13:17
PROVIDERS: PCP Family Medicine; Visit Provider Family Medicine
DX: Z12.31 Encounter for screening mammogram for malignant neoplasm of breast (principal)
CPT/HCPCS: 77063; 77067

== ENCOUNTER → 2023-04-12 08:35 | Outpatient (BNVA) | payer MEDICARE, OTHER, SELFPAY | PROVIDERS: PCP Family Medicine; Visit Provider Family Medicine | DX: E78.5 Hyperlipidemia, unspecified (principal); R73.9 Hyperglycemia, unspecified | CPT/HCPCS: 80053; 80061; 83036; 85025 ==

== ENCOUNTER 2023-05-20 12:42 | Inpatient (IN) | payer MEDICARE, OTHER, SELFPAY ==
[2023-05-20] VITALS (24 sets, daily range): BP systolic 110–214; BP diastolic 57–146; PULSE 88–185; RESP 11–31; TEMP 36.6–36.9; O2SAT 87–98; BMI 39.1
--- NOTE | 2023-05-20 12:49 | ECG_ITS ---
[facility] Test Date: 2023-05-20 Pat Name: Lianet Combs Department: Room: Gender: Female Associate Director Of Sales: : 1950 Requested By: Anatoly Cherry Order Number: [id number] Gaby MD: Betsy Ortiz M.D. Measurements Intervals [place] Rate: 163 P: 0 [place]: 0 QRS: 8 QRSD: 94 T: 107 QT: 227 QTc: 375 Interpretive Statements ATRIAL FIBRILLATION WITH RAPID VENTRICULAR RESPONSE NONSPECIFIC ST & T-WAVE ABNORMALITY CRITICAL TEST RESULT Compared to ECG 05/03/2018 19:42:36 T-wave abnormality now present Atrial-paced complex(es) or rhythm no longer present Ventricular-paced complex(es) or rhythm no longer present Electronically Signed On 05-21-2023 10:21:10 CDT by Betsy Ortiz M.D. [email or web address] [email or web address] [facility].[employer]/store/OM/[id number]
--- NOTE | 2023-05-20 12:58 | XRR_ITS ---
PROCEDURE INFORMATION: Exam: XR Chest Exam date and time: 05/20/2023 1:12 PM Age: 72 years old Clinical indication: Dyspnea; Additional info: Dyspnea tachycardia TECHNIQUE: Imaging protocol: Radiologic exam of the chest. Views: 1 view. COMPARISON: CR XR chest 1V [id number] 02/24/2022 4:08 PM FINDINGS: Lungs: Lung volumes are decreased. Mild interstitial opacities at the lung bases that may be secondary to mild pulmonary congestion. No consolidating infiltrates detected. Pleural spaces: Unremarkable. No pleural effusion. No pneumothorax. Heart/Mediastinum: Heart is enlarged. Bones/joints: Right shoulder replacement partially visualized. No acute bony abnormalities. XR/XR chest 1V portable [id number] IMPRESSION: Mild cardiomegaly. Decreased lung volumes with questionable mild CHF.
--- NOTE | 2023-05-20 13:00 | W.ED.CHESTPA ---
HPI - Chest Pain General: Chief Complaint: Chest Pain Stated Complaint: Sob chest pain Time Seen by Provider: 05/20/23 12:52 History of Present Illness: Patient presents to the ER with complaints of palpitations x24 hours but worse this morning. Swelling in her legs off and on times the last week. But worse today. Patient denies any chest pain or shortness of breath at this time. Patient is on amlodipine 5 mg twice daily, [place] carvedilol 12.5 mg twice daily, clonidine 0.1 mg twice daily, quinapril 40 mg twice daily, during his palpitations. Patient says her heart races. This has happened multiple times in the past but never quite this bad or this long. Patient does not have any cardiac history that she mentions. Patient has no history of atrial fibrillation and is not on anticoagulation. Review of Systems General: Reports: 10 or more systems reviewed and unremarkable except in HPI and below PFSH ED PFSH: Medical History Abnormal pulse oximetry Essential hypertension Shortness of Breath Surgical History H/O cataract extraction H/O foot surgery History of cholecystectomy Social History Smoking and tobacco/nicotine status: never used tobacco/nicotine Physical Exam Const: COMMON NORMALS: no acute distress, average body habitus, patient oriented x3, no limitations, healthy appearing, alert and well nourished HENMT: COMMON NORMALS: normocephalic, atraumatic, hearing grossly normal bilaterally, external ears normal, Normal external nose present, moist oral mucous membranes and oropharynx normal HEAD & SCALP: normocephalic and atraumatic NOSE: Normal external nose present EXTERNAL EAR: Yes external ears normal Eye: COMMON NORMALS: Equal, round and reactive pupils present, EOMs intact bilaterally, conjunctivae normal and no scleral icterus CONJUNCTIVA: Yes conjunctivae normal PUPIL: Yes Equal, round and reactive pupils present Neck/C-Spine: COMMON NORMALS: full ROM, no lymphadenopathy, supple, no meningeal signs, no JVD and Thyroid normal THYROID: Thyroid normal Chest: COMMONS NORMALS: normal inspection of the chest and normal palpation of entire chest wall Resp: COMMON NORMALS: normal respiratory effort, No retractions, No use of accessory muscles and clear to auscultation bilaterally AUSCULTATION: clear to auscultation bilaterally Cardio: COMMON NORMALS: no JVD, S1 normal heart sound present, S2 normal heart sound present, No gallops present (Cardio), No clicks present (Cardio) and No murmurs present (Cardio); negative for regular rate (Tachycardic) and negative for regular rhythm (Irregularly irregular) RATE: abnormal rate (Tachycardic) RHYTHM: abnormal rhythm (Irregularly irregular) HEART SOUNDS: S1 normal heart sound present and S2 normal heart sound present GI: COMMON NORMALS: Normal to inspection, nondistended, normoactive bowel sounds present, Soft to palpation, non-tender, No hepatosplenomegaly present and no masses PALPATION: Yes Soft to palpation and Yes No hepatosplenomegaly present : COMMON NORMALS: Yes no CVA tenderness BLADDER/KIDNEY EXAM: Yes no CVA tenderness Back/Pelvis: COMMON NORMALS: no CVA tenderness Neuro: COMMON NORMALS: patient oriented x3 SENSORIUM/ORIENTATION: Yes alert MENINGEAL SIGNS: Yes no meningeal signs Course Vital Signs: Vital signs: Vital Signs Temperature 98.0 F 05/20/23 20:00 Pulse Rate 104 H 05/20/23 20:00 Respiratory Rate 31 H 05/20/23 20:00 Blood Pressure 147/123 05/20/23 20:00 Pulse Oximetry 94 05/20/23 20:00 Oxygen Delivery Me thod Room Air 05/20/23 20:00 MDM - Chest Pain Medical Decision Making Patient presents to the ER with a heart rate of 185 beats a minute and blood pressure 214/146. EKG showed patient was in A-fib with RVR. Patient was given 20 mg metoprolol IV which slowed her heart rate down to the 140s. Patient was placed on a Cardizem drip and titrated upwards. Is also noted the patient was in mild CHF with a BNP of 2500 and edema to bilateral lower extremities and her potassium was 3.3. Patient was given 40 mg of IV Lasix and 40 mEq of oral potassium. Blood pressure improved to 173/116 and heart rate to 129. Dr. Adams was called and she accepted the patient to [facility] for further evaluation and treatment. We will give 5 mg metoprolol IV in the interim. Differential Diagnosis Unlikely acute massive pulmonary embolism, acute respiratory failure, acute myocardial infarction, cardiac arrest or sudden cardiac Medical Records I reviewed the patient's medical records. Lab Data I reviewed the patient's lab results. 05/20/23 13:09 05/20/23 13:09 Radiology Impressions Chest X-Ray 05/20/23 12:58 IMPRESSION: Mild cardiomegaly. Decreased lung volumes with questionable mild CHF. Laboratory Results WBC 11.16 10^3/uL (3.29-11.43) 05/20/23 13:09 RBC 5.47 10^6/uL (3.85-5.65) 05/20/23 13:09 Hgb 14.60 g/dL (11.27-16.99) 05/20/23 13:09 Hct 47.4 % (36-47) H 05/20/23 13:09 MCV 86.7 fl (85-98) 05/20/23 13:09 MCH 26.7 pg (27-33) L 05/20/23 13:09 MCHC 30.8 g/dL (30-55) 05/20/23 13:09 RDW 16.9 % (12.1-15.1) H 05/20/23 13:09 Plt Count 270 10^3/cmm (157-399) 05/20/23 13:09 MPV 10.2 fL (7.4-10.4) 05/20/23 13:09 Neut % (Auto) 68.0 % 05/20/23 13:09 Lymph % (Auto) 21.5 % 05/20/23 13:09 [place] % (Auto) 7.5 % 05/20/23 13:09 Eos % (Auto) 1.8 % 05/20/23 13:09 Baso % (Auto) 0.8 % 05/20/23 13:09 Neut # (Auto) 7.58 10^3/uL (1.8-7.7) 05/20/23 13:09 Lymph # (Auto) 2.4 10^3/uL (0.8-4.8) 05/20/23 13:09 [place] # (Auto) 0.8 10^3/uL (0.2-0.9) 05/20/23 13:09 Eos # (Auto) 0.2 10^3/uL (0.0-0.8) 05/20/23 13:09 Baso # (Auto) 0.1 10^3/uL (0.0-0.1) 05/20/23 13:09 Nucleated RBC % (auto) 0 % 05/20/23 13:09 Nucleated RBCs # 0.0 /100WBC 05/20/23 13:09 PT 15.80 SECONDS (12.1-14.9) H 05/20/23 13:39 INR 1.22 (0.8-1.2) H 05/20/23 13:39 Sodium 141 mmol/L (136-145) 05/20/23 13:09 Potassium 3.3 mmol/L (3.5-5.1) L 05/20/23 13:09 Chloride 102 mmol/L (98-107) 05/20/23 13:09 Carbon Dioxide 26 mmol/L (22-29) 05/20/23 13:09 Anion Gap 16.3 (5-19) 05/20/23 13:09 BUN 11 mg/dL (8-23) 05/20/23 13:09 Creatinine 0.6 mg/dL (0.5-0.9) 05/20/23 13:09 GFR Calculation Not Reportable 05/20/23 13:09 Glucose 103 mg/dL (65-115) 05/20/23 13:09 Calculated Osmolality 292 mOsm/kg (285-295) 05/20/23 13:09 Calcium 9.7 mg/dL (8.5-10.5) 05/20/23 13:09 Magnesium 2.0 mg/dL (1.7-2.3) 05/20/23 13:09 Total Bilirubin 1.6 mg/dL (0.15-1.2) H 05/20/23 13:09 AST 15 U/L (0-32) 05/20/23 13:09 ALT 9 U/L (0-33) 05/20/23 13:09 Alkaline Phosphatase 73 U/L (35-105) 05/20/23 13:09 Troponin T Baseline 13 ng/L (0-10) H 05/20/23 13:09 NT-Pro-B Natriuret Pep 2375 pg/mL (0-125) H 05/20/23 13:09 Total Protein 6.9 g/dL (6.6-8.7) 05/20/23 13:09 Albumin 4.6 g/dL (3.5-5.2) 05/20/23 13:09 Globulin 2.3 g/dL (1.3-4.6) 05/20/23 13:09 TSH 1.69 uIU/mL (0.27-4.20) 05/20/23 13:09 All radiology interpretation(s) finalized by discharge EKG Data EKG 1: I personally reviewed and interpreted this EKG as follows: EKG interpretation date: 05/20/23 EKG interpretation time: 12:49 Prior EKG tracings: not available for review Interpretation: EKG showed ventricular rate 163 beats a minute, QRS duration 94, QTc of 317, atrial fibrillation with RVR, nonspecific ST and T wave abnormality Critical Care Time Critical Care Time: Critical Care Time: Yes Total Critical Care Time: 60 Attestation: Patient was placed on IV Cardizem drip and given a metoprolol push for her tachycardia and hypertension. Patient was also given IV push of Lasix for her CHF. 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
[2023-05-20] MEDS: dilTIAZem 5 mg/mL SDV 5 mL 20 MG IVP (13:14)
[2023-05-20 13:24] LABS: Basophils # 0.1 10^3/uL (0.0-0.1); Basophils % 0.8 %; Eosinophils # 0.2 10^3/uL (0.0-0.8); Eosinophils % 1.8 %; Hematocrit 47.4 % (36-47); Lymphocytes # 2.4 10^3/uL (0.8-4.8); Lymphocytes % 21.5 %; Mean Corpuscular HGB Conc 30.8 g/dL (30-55); Mean Corpuscular Hemoglobin 26.7 pg (27-33); Mean Corpuscular Volume 86.7 fl (85-98); Mean Platelet Volume 10.2 fL (7.4-10.4); Monocytes # 0.8 10^3/uL (0.2-0.9); Monocytes % 7.5 %; Neutrophils # 7.58 10^3/uL (1.8-7.7); Nucleated Red Blood Cells % 0 %; Platelet Count 270 10^3/cmm (157-399); Red Blood Count 5.47 10^6/uL (3.85-5.65); Red Cell Distribution Width 16.9 % (12.1-15.1); White Blood Count 11.16 10^3/uL (3.29-11.43)
[2023-05-20] MEDS: dilTIAZem 100 MG in sodium chloride 0.9% (add-van) 100 ML IV (13:28)
[2023-05-20] MEDS: ondansetron 2 mg/ML SDV 2 mL 4 MG IVP (13:33)
[2023-05-20 13:46] LABS: Troponin(5th) Baseline 13 ng/L (0-10)
[2023-05-20 13:54] LABS: Alanine Aminotransferase 9 U/L (0-33); Albumin Level 4.6 g/dL (3.5-5.2); Alkaline Phosphatase 73 U/L (35-105); Aspartate Amino Transferase 15 U/L (0-32); Blood Urea Nitrogen 11 mg/dL (8-23); Calcium 9.7 mg/dL (8.5-10.5); Carbon Dioxide 26 mmol/L (22-29); Chloride 102 mmol/L (98-107); Globulin 2.3 g/dL (1.3-4.6); Glucose 103 mg/dL (65-115); NT Pro B Type Natriuretic Pept 2375 pg/mL (0-125); Osmolality Calculated 292 mOsm/kg (285-295); Sodium 141 mmol/L (136-145); Thyroid Stimulating Hormone 1.69 uIU/mL (0.27-4.20); Total Bilirubin 1.6 mg/dL (0.15-1.2); Total Protein 6.9 g/dL (6.6-8.7)
[2023-05-20 13:55] LABS: Anion Gap 16.3 (5-19); Potassium 3.3 mmol/L (3.5-5.1)
[2023-05-20 14:29] LABS: INR 1.22 (0.8-1.2)
--- NOTE | 2023-05-20 14:58 | ECG_ITS ---
[facility] Test Date: 2023-05-20 Pat Name: Lianet Combs Department: Room: 111 Gender: Female Machine Woodworking Sander: : 1950 Requested By: Joselito Griffith Order Number: [id number] Gaby MD: Betsy Ortiz M.D. Measurements Intervals [place] Rate: 107 P: 0 AK: 0 QRS: 3 QRSD: 93 T: 120 QT: 360 QTc: 481 Interpretive Statements ATRIAL FIBRILLATION WITH RAPID VENTRICULAR RESPONSE NONSPECIFIC ST & T-WAVE ABNORMALITY Compared to ECG 05/20/2023 12:49:33 No significant changes Electronically Signed On 05-21-2023 10:48:49 CDT by Betsy Ortiz M.D. [email or web address] general [email or web address]-[facility] hospital.[employer]/store/OM/[id number]
[2023-05-20] MEDS: metoprolol tartrate 1 mg/1 mL SDV 5 mL 5 MG IVP (15:11)
[2023-05-20] MEDS: FUROsemide 10 mg/mL SDV 4mL 40 MG IVP (15:11)
[2023-05-20] MEDS: potassium chloride ER 20 mEq Tablet 40 MEQ PO (15:12)
[2023-05-20 15:49] LABS: Troponin 5 2HR 13.39 ng/L (0-10)
[2023-05-20 15:51] LABS: Troponin 5 2HR Delta 0.39 ABS# (0-10)
[2023-05-20 17:52] LABS: Add Urine Microscopic? NO; Charge for UA Resulting for Rev
[2023-05-20 18:05] LABS: Urine Appearance Clear (CLEAR); Urine Color Colorless (Yellow); pH Urine 6 (5-7)
[2023-05-20 18:06] LABS: Bilirubin Urine Neg (Negative); Blood Urine Neg (Negative); Glucose Urine UA Norm (Normal); Ketones Urine Negative (Negative); Leukocyte Esterase Urine Negative (Negative); Nitrate Urine Negative (Negative); Protein Urine Neg (Negative); Specific Gravity, Urine 1.005 (1.005-1.030); Urobilinogen Urine Neg (Negative)
[2023-05-20 18:08] LABS: Amphetamines Screen Urine Negative (Negative); Barbiturates Screen Urine Negative (Negative); Benzodiazepines Screen Urine Negative (Negative); Cocaine Screen Urine Negative (Negative); Opiate Screen Urine Negative (Negative); PCP Screen Urine Negative (Negative); THC Screen Urine Negative (Negative)
--- NOTE | 2023-05-20 18:58 | ECG_ITS ---
[facility] Test Date: 2023-05-20 Pat Name: Lianet Combs Department: Room: 101 Gender: Female Accounts Payable Processor: : 1950 Requested By: Joselito Griffith Order Number: [id number] Gaby MD: Betsy Ortiz M.D. Measurements Intervals [place] Rate: 100 P: 0 [place]: 0 QRS: 16 QRSD: 122 T: 120 QT: 390 QTc: 505 Interpretive Statements ATRIAL FIBRILLATION WITH RAPID VENTRICULAR RESPONSE WITH ABERRANT CONDUCTION OR VENTRICULAR PREMATURE COMPLEXES MODERATE INTRAVENTRICULAR CONDUCTION DELAY [110+ ms QRS DURATION] NONSPECIFIC ST & T-WAVE ABNORMALITY Compared to ECG 05/20/2023 16:27:29 Ventricular premature complex(es) now present Aberrant conduction of supraventricular beat(s) now present Intraventricular conduction delay now present T-wave abnormality still present Electronically Signed On 05-21-2023 10:48:21 CDT by Betsy Ortiz M.D. [email or web address] [email or web address] [facility].[employer]/store/OM/[id number]
--- NOTE | 2023-05-20 19:29 | PM.HP ---
Providers/Chief Complaint Admitting Physician: Devorah Adams MD Primary Care Provider: Griselda Goetz DO Chief Complaint: Sob chest pain History of Present Illness Lianet Combs is a 72 year old female with PMH HTN, HLD presenting today with palpitations that strated this afternoon. Patient has had similar episodes of episodic palpitations in the past intermittently but most would subside without any intervention. She needed to be taken to the ER on one previous occassion about 4 yrs ago in [place] when she was told she has tachycardia- no other detials available. 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 Denies chest pain but c/o palpitations and discomfort when tachycardia. In [facility] ER, she was found to have a fib with RVR, HR 180s, started on cardizem infusion. SBP also > 220 upon admission for which she received both cardizem and metoprolol pushes. AT time of assessment her HR is 110 bpm, BP 130/76 mmhg on cardizem 7.5mg/hr infusion. Denies any prior known cardiac history. H/o knee replacement in December 2022 following which she has been going for PT 2-3 times per week. has noticed B/L LE edema which tends to wax and wane but has bene pretty persistent since post operatively. Denies coffee intake but drinks 18-24 oz diet soda daily from [employer]. NO recent stressors per patient no recent fever, chills, URI Review of Systems General: Reports: 10 or more systems reviewed and unremarkable except in HPI and below Const: Denies: fever(s), chills or body aches Eyes: Denies: change in vision, blurry vision or photophobia ENMT: Reports: hoarseness; Denies: throat pain, enlarged tonsils, odynophagia or nasal congestion Card: Denies: chest pain, palpitations, irregular heart rhythm, edema, swelling of feet/ankles, lightheadedness, pre-syncope, dyspnea on exertion or orthopnea Resp: Denies: dyspnea, productive cough, non-productive cough, wheezing, stridor, pain on inspiration, change in phlegm color, hemoptysis or chest congestion GI: Denies: abdominal pain, nausea, vomiting, hematemesis, coffee ground emesis, dysphagia, heartburn, diarrhea, constipation, GI cramping, change in stool character, hematochezia or melena : Denies: flank pain, difficulty voiding, dysuria, urinary frequency, urinary urgency, urinary hesitancy or hematuria Musc: Denies: neck pain, back pain, extremity pain, joint swelling, joint warmth or deformity Neuro: Denies: headache(s), numbness in extremities, weakness in extremities, sensory changes, difficulty walking, frequent falls, dizziness, vertigo, behavioral changes, Slurred speech present or seizure-like activity Psych: Denies: anxiety, depression, suicidal ideation or homicidal ideation Endo: Denies: polyuria, polydipsia, tired all the time, cold intolerance or hot flashes Saji/Lymph: Denies: easy bruising or easy bleeding Medications/Allergies Home Medications Medication Instructions Recorded Confirmed Last Taken Type biotin 10,000 mcg capsule 10,000 mcg PO .ONCE DAILY 11/25/19 05/20/23 05/19/23 History cetirizine 10 mg capsule (Zyrtec) 10 mg PO .ONCE DAILY PRN Allergic 11/25/19 05/20/23 03/05/22 History Symptoms albuterol sulfate 90 mcg/actuation 1 puff inhalation QID PRN 04/12/23 05/20/23 Unknown Rx aerosol inhaler shortness of breath or wheezing #8.5 grams carvedilol 12.5 mg tablet 12.5 mg PO BID 90 days #180 tabs 04/12/23 05/20/23 05/19/23 Rx citalopram 40 mg tablet 40 mg PO DAILY #90 tabs 04/12/23 05/20/23 05/19/23 Rx atorvastatin 20 mg tablet 20 mg PO .at bedtime #90 tabs 04/13/23 05/20/23 05/19/23 Rx amlodipine 5 mg tablet 5 mg PO BID 05/20/23 05/20/23 05/19/23 History clonidine HCl 0.1 mg tablet 0.1 mg PO BID 05/20/23 05/20/23 05/19/23 History famotidine 20 mg tablet (Pepcid AC) 20 mg PO DAILY PRN Acid Reflux 05/20/23 05/20/23 05/20/23 History quinapril 40 mg tablet 40 mg PO BID 05/20/23 05/20/23 05/19/23 History Allergies Allergy/AdvReac Type Severity Reaction Status Date / Time No Known Allergies Allergy Verified 04/12/23 08:05 PFSH Acute PFSH: Medical History Abnormal pulse oximetry Essential hypertension Shortness of Breath Surgical History H/O cataract extraction H/O foot surgery History of cholecystectomy Social History Smoking and tobacco/nicotine status: never used tobacco/nicotine Vitals/I&O/Wt Last Vital Signs Temp 98.4 F 05/20/23 16:58 Pulse 112 H 05/20/23 19:00 Resp 17 05/20/23 16:58 BP 149/94 05/20/23 19:00 Pulse Ox 94 05/20/23 19:00 O2 Del Method Room Air 05/20/23 16:58 05/20/23 05/20/23 05/20/23 06:59 14:59 22:59 Intake Total 6.708 / 6.708 / .708 Balance 6.708 / 6.708 / .708 Weight last 48 hrs Weight 112.083 kg Weight 113.398 kg Physical Exam Narrative: General: No acute distress, AO x3 HEENT: PERRLA, pupils bilaterally equal and reactive, pallors not present Chest: Normal vesicular breath sounds, no added sounds, equal good air entry bilaterally CVS: S1-S2 regular, no murmurs, no tachycardia, no gallops, no rubs Abdomen: Soft, nontender, no organomegaly, bowel sounds present Neuro: No focal deficits, no facial deformity, AO x3, power 5/5 in all limbs ext: pitting edema + Data 05/21/23 03:15 05/21/23 03:15 A&P Assessment and plan (1) Atrial fibrillation with rapid ventricular response: newly diagnosed suspect may have been chronic intermittent but no past records available to confirm continue cardizem gtt as started in the ER overlap with po cardizem 30mg q6h and attempt to titrate drip off continue home regimen of anti hypertensives TSH normal Trop series thus far not significant at 2 hrs check echocardiogram will likely need initiation of Doacs at discharge (2) Hypertension: currently controlled as above continue home regimen for now Qualifiers: Hypertension type: primary hypertension Qualified Code(s): I10 - Essential (primary) hypertension (3) CHF (congestive heart failure): unknown type and chronicity at this time suspect chronic given LE edema over many months and intermittent a fib currently likely precipitated by a fib elevated BNP, CXR with edema Lasix 40mg iv given today monitor I/O and renal function Plan LE swelling since knee surgery in December : check D dimer and LE venous duplex for possible VTE Attestations Medical Necessity Statement*: > 2 midnight admission anticipated Coding Level of Care Code Acute Code for Chg Fwd High MDM includes number and complexity of problems actively addressed during encounter, amount and/or complexity of data reviewed/ordered and described risk of complication, morbidity or mortality of management as documented Diagnoses Atrial fibrillation with rapid ventricular response I48.91 Hypertension I10 Hypertension type: primary hypertension CHF (congestive heart failure) I50.9
[2023-05-20] MEDS: dilTIAZem 100 MG in sodium chloride 0.9% (add-van) 100 ML 15 MG IV (20:06)
[2023-05-20] MEDS: dilTIAZem 30 mg Tablet PO (20:09)
[2023-05-20] MEDS: enoxaparin 40 mg/0.4 mL Syringe SUBCUT (20:09)
[2023-05-20 20:19] LABS: D Dimer 1.47 ug/mLFEU (0-0.59)
[2023-05-20 20:20] LABS: Troponin 5 6HR 14.44 ng/L (0-10)
[2023-05-20 20:21] LABS: Troponin 5 6HR Delta 1.44 ng/L (0-12)
[2023-05-20] MEDS: atorvastatin 40 mg Tablet 20 MG PO (21:55)
[2023-05-20] MEDS: acetaminophen 325 mg Tablet 650 MG PO (23:24)
[2023-05-21] VITALS (26 sets, daily range): BP systolic 96–173; BP diastolic 70–119; PULSE 69–128; RESP 14–28; TEMP 36.4–36.8; O2SAT 89–95
[2023-05-21] MEDS: dilTIAZem 30 mg Tablet PO ×3 (00:36→09:58)
--- NOTE | 2023-05-21 04:11 | PC.NURSE ---
Spoke to regarding patient with elevated BP 152/110. Patient is currently on cardizem gtt at 10mg/hr. Per give patient home BP meds, lisinopril and amlodipine now for elevated BP.
[2023-05-21 04:19] LABS: Basophils # 0.1 10^3/uL (0.0-0.1); Eosinophils # 0.2 10^3/uL (0.0-0.8); Eosinophils % 2.1 %; Hematocrit 41.3 % (36-47); Lymphocytes # 2.1 10^3/uL (0.8-4.8); Lymphocytes % 26.2 %; Mean Corpuscular HGB Conc 29.3 g/dL (30-55); Mean Corpuscular Hemoglobin 26.1 pg (27-33); Mean Corpuscular Volume 89.2 fl (85-98); Monocytes # 0.7 10^3/uL (0.2-0.9); Monocytes % 9.1 %; Neutrophils # 4.93 10^3/uL (1.8-7.7); Neutrophils % 61.4 %; Nucleated Red Blood Cells % 0 %; Platelet Count 218 10^3/cmm (157-399); Red Blood Count 4.63 10^6/uL (3.85-5.65); Red Cell Distribution Width 16.8 % (12.1-15.1); White Blood Count 8.03 10^3/uL (3.29-11.43)
[2023-05-21 04:39] LABS: Alanine Aminotransferase 8 U/L (0-33); Albumin Level 3.8 g/dL (3.5-5.2); Alkaline Phosphatase 63 U/L (35-105); Anion Gap 15.1 (5-19); Aspartate Amino Transferase 13 U/L (0-32); Blood Urea Nitrogen 10 mg/dL (8-23); Calcium 8.7 mg/dL (8.5-10.5); Carbon Dioxide 28 mmol/L (22-29); Chloride 105 mmol/L (98-107); Globulin 2.4 g/dL (1.3-4.6); Glucose 84 mg/dL (65-115); Osmolality Calculated 298 mOsm/kg (285-295); Potassium 3.1 mmol/L (3.5-5.1); Sodium 145 mmol/L (136-145); Total Bilirubin 1.8 mg/dL (0.15-1.2); Total Protein 6.2 g/dL (6.6-8.7)
[2023-05-21] MEDS: amlodipine 5 mg Tablet PO ×2 (04:41→07:58)
[2023-05-21] MEDS: lisinopril 20 mg Tablet 40 MG PO ×2 (04:41→17:32)
[2023-05-21] MEDS: pantoprazole DR 40 mg Tablet PO (07:57)
[2023-05-21] MEDS: carvedilol 12.5 mg Tablet PO ×2 (07:59→17:32)
[2023-05-21] MEDS: citalopram 20 mg Tablet 40 MG PO (07:59)
[2023-05-21] MEDS: cloNIDine 0.1 mg Tablet PO ×2 (07:59→17:32)
[2023-05-21] MEDS: potassium chloride ER 20 mEq Tablet PO (08:51)
[2023-05-21] MEDS: apixaban 5 mg Tablet PO ×2 (08:51→21:42)
[2023-05-21] MEDS: spironolactone 25 mg Tablet PO (08:51)
[2023-05-21] MEDS: dilTIAZem 100 MG in sodium chloride 0.9% (add-van) 100 ML 12.5 MG IV (08:52)
[2023-05-21] MEDS: dilTIAZem 30 mg Tablet 60 MG PO ×3 (11:59→23:54)
[2023-05-21] MEDS: FUROsemide 10 mg/mL SDV 4mL 40 MG IVP (11:59)
--- NOTE | 2023-05-21 13:50 | PM.PN ---
Vitals/I&O/Wt Last Vital Signs Temp 98.1 F 05/21/23 11:47 Pulse 85 05/21/23 11:47 Resp 24 H 05/21/23 11:47 BP 96/70 05/21/23 11:47 Pulse Ox 90 05/21/23 11:47 O2 Del Method Room Air 05/21/23 11:47 05/20/23 05/21/23 05/21/23 22:59 06:59 14:59 Intake Total 329.167 / 335.875 159.666 / 495.541 502.667 / 502.667 Output Total 100 / 100 150 / 250 50 / 50 Balance 229.167 / 235.875 9.666 / 245.541 452.667 / 452.667 Weight last 48 hrs Weight 112.083 kg Weight 113.398 kg Physical Exam Const: COMMON NORMALS: no acute distress and patient oriented x3 HENMT: COMMON NORMALS: normocephalic HEAD & SCALP: normocephalic Resp: COMMON NORMALS: normal respiratory effort, No retractions, No use of accessory muscles and clear to auscultation bilaterally AUSCULTATION: clear to auscultation bilaterally Cardio: COMMON NORMALS: regular rate, S1 normal heart sound present and S2 normal heart sound present RATE: regular rate RHYTHM: abnormal rhythm irregularly irregular HEART SOUNDS: S1 normal heart sound present and S2 normal heart sound present GI: COMMON NORMALS: Normal to inspection, nondistended, normoactive bowel sounds present and non-tender Extremity: COMMON NORMALS: no pedal edema Neuro: COMMON NORMALS: patient oriented x3 Psych: COMMON NORMALS: mental status grossly normal Data 05/21/23 03:15 05/21/23 03:15 A&P Assessment and plan (1) Atrial fibrillation with rapid ventricular response: -Awaiting cardiac echocardiogram ? Start Eliquis 5 mg twice daily ? Increase Cardizem to 60 mg every 6 hours ? Wean off Cardizem drip ? Does have evidence of fluid overload, 1+ pitting edema 1 dose of Lasix today (2) Hypertension: currently controlled as above continue home regimen for now Qualifiers: Hypertension type: primary hypertension Qualified Code(s): I10 - Essential (primary) hypertension (3) CHF (congestive heart failure): unknown type and chronicity at this time, in exacerbation, suspect chronic given LE edema over many months and intermittent a fib currently likely precipitated by a fib elevated BNP, CXR with edema Lasix 40mg iv given today monitor I/O and renal function Plan Venous ultrasound negative for DVT ? Start Eliquis 5 mg twice daily, stop Lovenox, Lasix 40 milligrams 1 dose, cardiac echocardiogram, wean off Cardizem Attestations Medical Necessity Statement*: Patient requires hospitalization for A-fib, with RVR on Cardizem drip, CHF exacerbation requiring Lasix Diagnoses Atrial fibrillation with rapid ventricular response I48.91 Hypertension I10 Hypertension type: primary hypertension CHF (congestive heart failure) I50.9
--- NOTE | 2023-05-21 19:08 | PC.NURSE ---
Shift Note Frequent safety and comfort rounds continue. Orders and/or nursing care completed as indicated. Patient monitored for response to intervention and treatment(s). Education provided includes anticoagulation therapy upon discharge w/ Eliquis and rate control medication such as Cardizem. HR has been maintaining at controlled HR in upper 70s, Afib. Upon activity, HR increased to upper 110s but does not sustain at rest. Patient and/or screening representative verbalizes understanding on all treatment and plan. Will continue to monitor.
--- NOTE | 2023-05-21 19:28 | USCV_ITS ---
Lianet Combs Age: 72 Gender: F : 1950 Exam Date: 05/21/2023 10:29 Ordering Phys: Devorah Adams MD Technologist: Luis Collins Exam Location: [facility] [place] Indication: chest pain BP: 112 / 84 HR: 111 Rhythm: Sinus Technical Quality: Adequate MEASUREMENTS (Male / Female) Normal Values 2D ECHO LV Diastolic Diameter PLAX 5.0 cm 4.2 - 5.9 / 3.9 - 5.3 cm LV Systolic Diameter PLAX 3.2 cm IVS Diastolic Thickness 1.1 cm 0.6 - 1.0 / 0.6 - 0.9 cm IVS Systolic Thickness 1.6 cm LVPW Diastolic Thickness 1.1 cm 0.6 - 1.0 / 0.6 - 0.9 cm LVPW Systolic Thickness 1.1 cm LVOT Diameter 2.0 cm LV Ejection Fraction 2D Teich 64.1 % LV Ejection Fraction MOD 2C 67.9 % LV Ejection Fraction 2C AL 68.6 % LA Diameter 4.9 cm IVC Diameter 1.6 cm M-MODE Aortic Annulus Diameter 4.0 cm LA Ao Ratio MM 1.5 DOPPLER AV Peak Velocity 88.0 cm/s LVOT Peak Velocity 75.0 cm/s AV Area Cont Eq vti 2.4 cm squared AV Area Cont Eq pk 2.7 cm squared MV Area PHT 5.0 cm squared Mitral E to A Ratio 2.7 MV E' Velocity 69.5 cm/s Mitral E to MV E' Ratio 11.8 Mitral E to LV E' Lateral Ratio 9.3 Mitral E to LV E' Septal Ratio 16.2 TR Peak Velocity 104.7 cm/s TR Peak Gradient 4.4 mmHg TV Peak E Velocity 57.0 cm/s Right Atrial Pressure 3.0 mmHg Pulmonary Artery Systolic Pressu 7.4 mmHg FINDINGS Left Ventricle Left ventricle is normal size. LV systolic function is normal with EF of 50 to 55%. No regional wall motion abnormalities are seen. Right Ventricle Normal in size Right Atrium Not well visualized Left Atrium Normal in size Mitral Valve Moderate mitral annular calcification. Moderate mitral regurgitation. Aortic Valve Aortic valve is thickened. Tricuspid Valve Grossly normal. Insufficient TR jet to calculate RVSP Pulmonic Valve Not well visualized Pericardium Normal Aorta Normal in size IVC Appears to be normal CONCLUSIONS Technically limited quality echocardiogram because of poor ultrasonic windows. LV systolic function is normal with EF of 50 to 55%. Moderate mitral regurgitation. No comparison studies are available. Elías Bonilla MD (Electronically Signed) Final Date: 21 May 2023 17:15 S
--- NOTE | 2023-05-21 19:51 | USCV_ITS ---
Lianet Combs Age: 72 Gender: F : 1950 Exam Date: 05/21/2023 08:48 Ordering Phys: Devorah Adams MD Technologist: MYNOR [place]am Location[place] [facility] [place] [facility] [place] Indication: Leg Swelling/Stasis HISTORY: Lower extremity swelling. PROCEDURES: The venous duplex Doppler examination of both lower extremities was performed in the standard fashion. The following venous structures were evaluated: common femoral vein, profunda vein, proximal portion of the greater saphenous vein, superficial femoral vein, and the popliteal vein. In addition, the posterior tibial and peroneal trunk were evaluated. Serial compression, augmentation maneuvers, and spectral Doppler flow evaluation were performed. FINDINGS: Normal 2-D Doppler and augmentation and compressibility throughout the lower extremity venous structures. Additional imaging through the proximal calf veins also reveals no thrombus. Limited evaluation of the greater saphenous vein is patent with no thrombus. CONCLUSIONS No DVT bilateral lower extremities. Dr. Dianne Martinez DO (Electronically Signed) Final Date: 21 May 2023 12:15 S
[2023-05-21] MEDS: atorvastatin 40 mg Tablet 20 MG PO (21:41)
[2023-05-22] VITALS (7 sets, daily range): BP systolic 94–129; BP diastolic 67–90; PULSE 76–91; RESP 17–18; TEMP 36.7; O2SAT 94–96
[2023-05-22 04:43] LABS: Basophils # 0.1 10^3/uL (0.0-0.1); Eosinophils # 0.2 10^3/uL (0.0-0.8); Eosinophils % 1.9 %; Hematocrit 40.9 % (36-47); Lymphocytes % 21.7 %; Mean Corpuscular HGB Conc 29.8 g/dL (30-55); Mean Corpuscular Hemoglobin 26.5 pg (27-33); Mean Corpuscular Volume 88.9 fl (85-98); Mean Platelet Volume 10.6 fL (7.4-10.4); Monocytes # 0.8 10^3/uL (0.2-0.9); Monocytes % 8.9 %; Neutrophils # 6.19 10^3/uL (1.8-7.7); Neutrophils % 66.1 %; Nucleated Red Blood Cells % 0 %; Platelet Count 195 10^3/cmm (157-399); Red Cell Distribution Width 17.2 % (12.1-15.1); White Blood Count 9.36 10^3/uL (3.29-11.43)
[2023-05-22 05:06] LABS: Alanine Aminotransferase 7 U/L (0-33); Albumin Level 3.7 g/dL (3.5-5.2); Alkaline Phosphatase 56 U/L (35-105); Anion Gap 16.2 (5-19); Aspartate Amino Transferase 12 U/L (0-32); Blood Urea Nitrogen 12 mg/dL (8-23); Calcium 8.7 mg/dL (8.5-10.5); Carbon Dioxide 25 mmol/L (22-29); Chloride 103 mmol/L (98-107); Glucose 107 mg/dL (65-115); Osmolality Calculated 292 mOsm/kg (285-295); Phosphorus 3.9 mg/dL (2.5-4.5); Potassium 3.2 mmol/L (3.5-5.1); Sodium 141 mmol/L (136-145); Total Bilirubin 1.2 mg/dL (0.15-1.2); Total Protein 5.7 g/dL (6.6-8.7)
[2023-05-22] MEDS: dilTIAZem 30 mg Tablet 60 MG PO (05:39)
[2023-05-22] MEDS: citalopram 20 mg Tablet 40 MG PO (09:07)
[2023-05-22] MEDS: apixaban 5 mg Tablet PO (09:08)
[2023-05-22] MEDS: lisinopril 20 mg Tablet 40 MG PO (09:08)
[2023-05-22] MEDS: cloNIDine 0.1 mg Tablet PO (09:08)
[2023-05-22] MEDS: potassium chloride ER 20 mEq Tablet 40 MEQ PO (09:08)
[2023-05-22] MEDS: carvedilol 12.5 mg Tablet PO (09:08)
[2023-05-22] MEDS: pantoprazole DR 40 mg Tablet PO (09:10)
[2023-05-22] MEDS: spironolactone 25 mg Tablet PO (09:28)
--- NOTE | 2023-05-22 10:28 | PC.NURSE ---
the pt ambulated from room 101 to the nurses station and back to room 101.
[2023-05-22] MEDS: dilTIAZem 30 mg Tablet 90 MG PO (11:03)
--- NOTE | 2023-05-22 13:53 | PM.DCS ---
Discharge Providers Date of Admission: 05/20/23 14:24 Date of Discharge: May 22, 2023 Attending Provider at Admission: Devorah Adams MD Attending Provider at Discharge: Ernesto Rivas MD Primary Care Provider: Griselda Goetz DO Diagnoses at Discharge Discharge Diagnosis (1) Atrial fibrillation with rapid ventricular response: Status: Acute (2) Hypertension: Status: Acute Qualifiers: Hypertension type: primary hypertension Qualified Code(s): I10 - Essential (primary) hypertension (3) CHF (congestive heart failure): Status: Acute Reason for Visit Reason for Visit: Sob chest pain Hospital Course Hospital Course Lianet Combs is a 72 year old female with PMH HTN, HLD presenting today with palpitations that strated this afternoon. Patient has had similar episodes of episodic palpitations in the past intermittently but most would subside without any intervention. She needed to be taken to the ER on one previous occassion about 4 yrs ago in [place] when she was told she has tachycardia- no other detials available. 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 Denies chest pain but c/o palpitations and discomfort when tachycardia. In [facility] ER, she was found to have a fib with RVR, HR 180s, started on cardizem infusion. SBP also > 220 upon admission for which she received both cardizem and metoprolol pushes. AT time of assessment her HR is 110 bpm, BP 130/76 mmhg on cardizem 7.5mg/hr infusion. Denies any prior known cardiac history. H/o knee replacement in December 2022 following which she has been going for PT 2-3 times per week. has noticed B/L LE edema which tends to wax and wane but has bene pretty persistent since post operatively. Denies coffee intake but drinks 18-24 oz diet soda daily from [employer]. NO recent stressors per patient? no recent fever, chills, URI This is a 72-year-old female, who presents to [facility] due to chest palpitations, diagnosed with new onset A-fib with RVR, with a diastolic CHF exacerbation, required Cardizem drip, inpatient diuresis,. For patient's A-fib with RVR, she was weaned off Cardizem drip, transition to p.o. Cardizem, upward titrated to 90 mg every 6 hours of Cardizem, this would control her heart rate with exertion, will be discharged on 180 twice daily of Cardizem. in terms of etiology of atrial fibrillation, likely some degree associated with her obesity, her echocardiogram does show moderate mitral regurgitation, she also has undiagnosed sleep apnea for which she has to follow-up with her primary care for consideration of sleep study. Patient was advised if she were to have any lightheadedness or dizziness or chest pain or palpitations to go to the emergency room. Discharged on Eliquis 5 mg twice daily, patient was advised if she were to have any blood blocks was to go to emergency room. Follow-up with cardiology in a week for consideration of stress testing. For patient's diastolic CHF exacerbation, required inpatient diuresis, overall clinically improved, discharged on Lasix with potassium as needed for lower extreme edema or shortness of breath or weight gain more than 3 pounds.. Patient was advised to avoid caffeine, avoid dark chocolate, avoid NSAIDs. ?Technically limited quality echocardiogram because of poor ?ultrasonic windows. ?LV systolic function is normal with EF of 50 to 55%. ?Moderate mitral regurgitation. ?No comparison studies are available. Physical Exam Const: COMMON NORMALS: no acute distress and patient oriented x3 Resp: COMMON NORMALS: normal respiratory effort, No retractions, No use of accessory muscles and clear to auscultation bilaterally AUSCULTATION: clear to auscultation bilaterally Cardio: COMMON NORMALS: regular rate, regular rhythm, S1 normal heart sound present and S2 normal heart sound present RATE: regular rate RHYTHM: regular rhythm HEART SOUNDS: S1 normal heart sound present and S2 normal heart sound present GI: COMMON NORMALS: Normal to inspection, nondistended, normoactive bowel sounds present and non-tender Extremity: COMMON NORMALS: no pedal edema Neuro: COMMON NORMALS: patient oriented x3 Psych: COMMON NORMALS: mental status grossly normal Discharge Data Studies Completed and Pending Completed Studies During Hospitalization Category Date Time Status XR chest 1V portable [id number] Stat Exams 05/20/23 12:58 [place] [id number] Routine Ultrasound 05/21/23 19:51 Completed CV. echo complete* [id number] Routine Ultrasound 05/21/23 19:28 Completed Pending at discharge Category Date Time Status Complete Blood Count w/Auto AM LABS Lab 05/23/23 04:00 Ordered Complete Blood Count w/Auto AM LABS Lab 05/24/23 04:00 Ordered Comprehensive Metabolic Panel AM LABS Lab 05/23/23 04:00 Ordered Comprehensive Metabolic Panel AM LABS Lab 05/24/23 04:00 Ordered Magnesium AM LABS Lab 05/23/23 04:00 Ordered Magnesium AM LABS Lab 05/24/23 04:00 Ordered Phosphorus AM LABS Lab 05/23/23 04:00 Ordered Phosphorus AM LABS Lab 05/24/23 04:00 Ordered Radiology Impressions Chest X-Ray 05/20/23 12:58 IMPRESSION: Mild cardiomegaly. Decreased lung volumes with questionable mild CHF. Laboratory Results WBC 9.36 10^3/uL (3.29-11.43) 05/22/23 03:35 RBC 4.60 10^6/uL (3.85-5.65) 05/22/23 03:35 Hgb 12.20 g/dL (11.27-16.99) 05/22/23 03:35 Hct 40.9 % (36-47) 05/22/23 03:35 MCV 88.9 fl (85-98) 05/22/23 03:35 MCH 26.5 pg (27-33) L 05/22/23 03:35 MCHC 29.8 g/dL (30-55) L 05/22/23 03:35 RDW 17.2 % (12.1-15.1) H 05/22/23 03:35 Plt Count 195 10^3/cmm (157-399) 05/22/23 03:35 MPV 10.6 fL (7.4-10.4) H 05/22/23 03:35 Neut % (Auto) 66.1 % 05/22/23 03:35 Lymph % (Auto) 21.7 % 05/22/23 03:35 [place] % (Auto) 8.9 % 05/22/23 03:35 Eos % (Auto) 1.9 % 05/22/23 03:35 Baso % (Auto) 1.0 % 05/22/23 03:35 Neut # (Auto) 6.19 10^3/uL (1.8-7.7) 05/22/23 03:35 Lymph # (Auto) 2.0 10^3/uL (0.8-4.8) 05/22/23 03:35 [place] # (Auto) 0.8 10^3/uL (0.2-0.9) 05/22/23 03:35 Eos # (Auto) 0.2 10^3/uL (0.0-0.8) 05/22/23 03:35 Baso # (Auto) 0.1 10^3/uL (0.0-0.1) 05/22/23 03:35 Nucleated RBC % (auto) 0 % 05/22/23 03:35 Nucleated RBCs # 0.0 /100WBC 05/22/23 03:35 PT 15.80 SECONDS (12.1-14.9) H 05/20/23 13:39 INR 1.22 (0.8-1.2) H 05/20/23 13:39 D-Dimer 1.47 ug/mLFEU (0-0.59) H 05/20/23 19:46 Sodium 141 mmol/L (136-145) 05/22/23 03:35 Potassium 3.2 mmol/L (3.5-5.1) L 05/22/23 03:35 Chloride 103 mmol/L (98-107) 05/22/23 03:35 Carbon Dioxide 25 mmol/L (22-29) 05/22/23 03:35 Anion Gap 16.2 (5-19) 05/22/23 03:35 BUN 12 mg/dL (8-23) 05/22/23 03:35 Creatinine 1.0 mg/dL (0.5-0.9) H 05/22/23 03:35 GFR Calculation Not Reportable 05/22/23 03:35 Glucose 107 mg/dL (65-115) 05/22/23 03:35 Calculated Osmolality 292 mOsm/kg (285-295) 05/22/23 03:35 Calcium 8.7 mg/dL (8.5-10.5) 05/22/23 03:35 Phosphorus 3.9 mg/dL (2.5-4.5) 05/22/23 03:35 Magnesium 2.0 mg/dL (1.7-2.3) 05/22/23 03:35 Total Bilirubin 1.2 mg/dL (0.15-1.2) 05/22/23 03:35 AST 12 U/L (0-32) 05/22/23 03:35 ALT 7 U/L (0-33) 05/22/23 03:35 Alkaline Phosphatase 56 U/L (35-105) 05/22/23 03:35 Troponin T Baseline 13 ng/L (0-10) H 05/20/23 13:09 Troponin T 120 Minute 13.39 ng/L (0-10) H 05/20/23 15:09 Delta Troponin T 0.39 ABS# (0-10) 05/20/23 15:09 Troponin T Hi Sens 6Hr 14.44 ng/L (0-10) H 05/20/23 19:46 Troponin T Hi Sens 6Hr Delta 1.44 ng/L (0-12) 05/20/23 19:46 NT-Pro-B Natriuret Pep 2375 pg/mL (0-125) H 05/20/23 13:09 Total Protein 5.7 g/dL (6.6-8.7) L 05/22/23 03:35 Albumin 3.7 g/dL (3.5-5.2) 05/22/23 03:35 Globulin 2.0 g/dL (1.3-4.6) 05/22/23 03:35 TSH 1.69 uIU/mL (0.27-4.20) 05/20/23 13:09 Urine Color Colorless (Yellow) 05/20/23 17:40 Urine Appearance Clear (CLEAR) 05/20/23 17:40 Urine pH 6 (5-7) 05/20/23 17:40 Ur Specific [place] 1.005 (1.005-1.030) 05/20/23 17:40 Urine Protein Neg (Negative) 05/20/23 17:40 Urine Glucose (UA) Norm (Normal) 05/20/23 17:40 Urine Ketones Negative (Negative) 05/20/23 17:40 Urine Blood Neg (Negative) 05/20/23 17:40 Urine Nitrate Negative (Negative) 05/20/23 17:40 Urine Bilirubin Neg (Negative) 05/20/23 17:40 Urine Urobilinogen Neg mg/dL (Negative) 05/20/23 17:40 Ur Leukocyte Esterase Negative (Negative) 10/22/23 17:40 Urine Opiates Screen Negative ng/mL (Negative) 05/20/23 17:40 Ur Barbiturates Screen Negative ng/mL (Negative) 05/20/23 17:40 Ur Phencyclidine Scrn Negative ng/mL (Negative) 05/20/23 17:40 Ur Amphetamines Screen Negative ng/mL (Negative) 05/20/23 17:40 U Benzodiazepines Scrn Negative ng/mL (Negative) 05/20/23 17:40 Urine Cocaine Screen Negative ng/mL (Negative) 05/20/23 17:40 U Marijuana (THC) Screen Negative ng/mL (Negative) 05/20/23 17:40 Vitals Last Vital Signs Temp 98.1 F 05/22/23 07:34 Pulse 79 05/22/23 11:42 Resp 18 05/22/23 11:42 BP 94/67 05/22/23 11:42 Pulse Ox 94 05/22/23 11:42 O2 Del Method Room Air 05/22/23 11:42 Discharge Plan Discharge Patient Disposition: Home Condition: Stable Prescriptions: New Eliquis 5 mg Tablet 5 mg PO BID@0900,2100 30 Days Qty: 60 0RF diltiazem HCl [Cardizem LA] 180 mg tablet extended release 24 hr 180 mg PO Q12H 30 Days Qty: 60 0RF furosemide [Lasix] 40 mg tablet 40 mg PO DAILY PRN (Reason: edema) 30 Days Qty: 30 0RF Rx Instructions: for weight gain >3lbs, edema, shortness of breath potassium chloride [Klor-Con M20] 20 mEq tablet,ER particles/crystals 20 meq PO DAILY 30 Days Qty: 30 0RF Rx Instructions: use with lasix Continued biotin 10,000 mcg capsule 10,000 mcg PO .ONCE DAILY Zyrtec 10 mg capsule 10 mg PO .ONCE DAILY PRN (Reason: Allergic Symptoms) carvedilol 12.5 mg tablet 12.5 mg PO BID 90 Days Qty: 180 1RF Rx Instructions: must administer with a meal/food citalopram 40 mg tablet 40 mg PO DAILY Qty: 90 1RF albuterol sulfate 90 mcg/actuation HFA aerosol inhaler 1 puff inhalation QID PRN (Reason: shortness of breath or wheezing) Qty: 8.5 1RF atorvastatin 20 mg tablet 20 mg PO .at bedtime Qty: 90 1RF Pepcid AC 20 mg Tablet 20 mg PO DAILY PRN (Reason: Acid Reflux) Changed quinapril 40 mg tablet 20 mg PO BID 30 Days Qty: 30 0RF Held clonidine HCl 0.1 mg tablet 0.1 mg PO BID Hold Instructions: Resume on 05/29/23. resume if sbp>150 or dbp>90 Discontinued amlodipine 5 mg tablet 5 mg PO BID Patient Comments: 04/06 Discharge Orders: Discharge Order (Routine); Ordered 05/22/23 Ordered By: Ernesto Rivas Referrals: Elías Bonilla M.D [Physician] - 05/31/23 12:30 pm Griselda Goetz DO [Primary Care Provider] - 06/07/23 2:30 pm Discharge Diet: Cardiac Discharge Activity: Resume usual activity Patient Instructions: Diltiazem (By mouth) (Cardizem, Cardizem CD, Cardizem LA, Cardizem SR), Furosemide (By mouth) (Lasix), Potassium Chloride (By mouth) (K-Dur, K-Shae, K-Tab, Lexa Mur), Apixaban (By mouth) (Eliquis), A-fib (Atrial Fibrillation) (ED), A-fib (Atrial Fibrillation) (DC), Hypertension (DC), CHF Stoplight, Opioid Safety Activity Restrictions/Additional Instructions: - If you have chest pain, palpitations, please go to the emergency room -Please follow-up with cardiology -I have discontinued your amlodipine -Please hold clonidine if you notice that your systolic blood pressures greater than 150 or diastolic greater than 90 then you can resume clonidine 0.1 twice daily -For your Lasix to be used as needed if you gain more than 3 pounds or if you feel short of breath or you develop lower extremity edema, please use Lasix 40 mg once daily for 3 days with potassium 20 mg once daily for 3 days, then stop if you continue to be short of breath continue to have edema continue to have weight gain more than 3 pounds go see primary care or see ER Discharge Attestations Time Spent in Discharge Care*: greater than 30 min Quality Metrics Clinical Quality Measures [ No reported AMI, CVA or VTE this stay] Coding Level of Care Code 84172 Total time (in minutes) for Discharge: 45 Diagnoses Atrial fibrillation with rapid ventricular response I48.91 Hypertension I10 Hypertension type: primary hypertension CHF (congestive heart failure) I50.9
--- NOTE | 2023-05-22 14:25 | CT_ITS ---
WS: [id number] CT HEAD NONCONTRAST HISTORY: fall head trauma TECHNIQUE: Contiguous axial imaging performed through the brain in 2.5 mm imaging. Bone and soft tiss ue windows. Sagittal and coronal reformats reviewed. All CT scans at [facility] use at least one of these dose optimization techniques: automated exposure control; mA and/or kV adjustment per pa tient size (includes targeted exams where dose is matched to clinical indication); or iterative recon struction. DLP: 1069.16 mGy.cm COMPARISON: None available. No acute intracranial hemorrhage, midline shift or mass effect. Mild atrophy and moderate small vessel ischemic disease. Prior lacunar infarct LEFT internal capsule. Small lacunar infarcts also along the external capsules. Ventricles: Normal size with no hydrocephalus. Paranasal sinuses: As visualized are clear. Mastoid air cells: Well pneumatized. Calvarium and scalp: Skull is intact with no soft tissue edema or swelling. IMPRESSION: 1. No acute intracranial hemorrhage or edema. 2. Mild atrophy with moderate small vessel ischemic disease. 3. Small lacunar infarcts in the external capsules and the LEFT internal capsule.
--- NOTE | 2023-05-22 15:27 | PC.NURSE ---
Patient was preparing to discharge and was instructed to get dressed and press the call light when finished so this nurse could escort her out via wheelchair. Patient failed to alert nurse. Patient was coming out of room 101 and tripped on her foot, hit her anterior lateral head, and landed on her bottom on the floor in the hallway just outside the door. Patient was beside her. Patient stated that nothing was hurting her and she had just tripped. Physician was notified, CT was ordered and patient was monitored for one hour.
--- NOTE | 2023-05-22 16:35 | PC.NURSE ---
Discharge Note Patient discharged to home via wheelchair accompanied by spouse. Discharge instructions reviewed with patient and/or field support representative. Mobile pharmacy medications and/or prescriptions provided. Belongings/home medications returned.
--- NOTE | 2023-05-23 11:41 | PC.NURSE ---
David, patient called to tell staff that the patient's quinapril was on low stock with the mail in pharmacy. Upon further investigation, patient's discovered that the quinapril was actually discontinued and was simply on an old medication list. Nurse notified Dr. Rivas, no further orders at this time.
== END 2023-05-22 16:36 | disposition home or self-care (01) | DRG 308 ==
LOC: ER 14:28 → CSU 14:52
PROVIDERS: Admitting Provider Student in an Organized Health Care Education/Training Program; Emergency Provider Emergency Medicine; PCP Family Medicine; Visit Provider Family Medicine
DX: I48.91 Unspecified atrial fibrillation (principal); I50.33 Acute on chronic diastolic (congestive) heart failure; I11.0 Hypertensive heart disease with heart failure; E78.5 Hyperlipidemia, unspecified; E66.9 Obesity, unspecified; Z68.38 Body mass index [BMI] 38.0-38.9, adult; I34.0 Nonrheumatic mitral (valve) insufficiency; G47.30 Sleep apnea, unspecified
CPT/HCPCS: 36415; 70450; 71045; 80053; 80306; 81003; 83735; 83880; 84100; 84443; 84484; 85025; 85378; 85610; 93005; 93306; 93970; 96365; 96366; 96372; 96376; 99285; J1650; J1940; J2405; J3490

== ENCOUNTER → 2023-06-05 13:20 | Outpatient (BNVA) | payer MEDICARE, OTHER, SELFPAY | PROVIDERS: PCP Family Medicine; Visit Provider Internal Medicine | DX: I48.91 Unspecified atrial fibrillation (principal); I10 Essential (primary) hypertension; R00.2 Palpitations; Z79.01 Long term (current) use of anticoagulants | CPT/HCPCS: 99204 ==

== ENCOUNTER → 2023-07-02 10:20 | Outpatient (BNVA) | payer MEDICARE, OTHER, SELFPAY | PROVIDERS: PCP Family Medicine; Visit Provider Family Medicine | DX: I50.9 Heart failure, unspecified (principal); I48.91 Unspecified atrial fibrillation | CPT/HCPCS: 80048 ==

== ENCOUNTER → 2023-07-05 14:05 | Outpatient (BNVA) | payer MEDICARE, OTHER, SELFPAY | PROVIDERS: PCP Family Medicine; Visit Provider Internal Medicine | DX: I48.91 Unspecified atrial fibrillation (principal); I10 Essential (primary) hypertension; Z79.01 Long term (current) use of anticoagulants | CPT/HCPCS: 99214 ==

== ENCOUNTER 2023-07-13 10:06 | Day surgery (SDC) | payer MEDICARE, OTHER, SELFPAY ==
[2023-07-13 10:39] VITALS: BP 165/127; PULSE 120; RESP 18; TEMP 36.4; O2SAT 95; BMI 34.4
--- NOTE | 2023-07-13 10:42 | ECG_ITS ---
[facility] Test Date: 2023-07-13 Pat Name: Lianet Combs Department: Room: Gender: Female Senior Project Leader/Team Lead: : 1950 Requested By: Elías Bonilla Order Number: [id number] Gaby MD: Erik Yee M.D. Measurements Intervals [place] Rate: 123 P: 0 MD: 0 QRS: -6 QRSD: 96 T: 70 QT: 329 QTc: 471 Interpretive Statements ATRIAL FIBRILLATION WITH RAPID VENTRICULAR RESPONSE NONSPECIFIC ST & T-WAVE ABNORMALITY ABNORMAL RHYTHM ECG Compared to ECG 05/20/2023 18:24:13 Aberrant conduction of supraventricular beat(s) no longer present Ventricular premature complex(es) no longer present Intraventricular conduction delay no longer present T-wave abnormality still present Electronically Signed On 07-13-2023 13:44:40 COURTESY VAN DRIVER by Erik Yee M.D. [id number]
--- NOTE | 2023-07-13 10:43 | ANES.PREANE2 ---
Pre-Anesthetic Assessment Height/Weight: Height 1.7 m Weight 99.79 kg Temp Pulse Resp BP Pulse Ox O2 Del Method 97.6 F 120 H 18 165/127 95 Room Air 07/13/23 10:39 07/13/23 10:39 07/13/23 10:39 07/13/23 10:39 07/13/23 10:39 07/13/23 10:39 Operation Date: 07/13/23 12:00 Proposed Procedures p HAYDEN/Cardioversion [id number],I48.91(Not Applicable) - Rossy Nails Cardioversion(Not Applicable) - Elías Bonilla M.D Familial anesthetic complications: None Was Beta John taken within 24 hours: N/A Was Clonidine taken within 24 hours: N/A Last intake: Intake Last Liquid Date 07/12/23 Last Liquid Time 21:00 Last Solid Date 07/12/23 Last Solid Time 19:00 Social No alcohol and No tobacco Exam alert, oriented x 3, clear to auscultation bilaterally and regular rate & rhythm Airway Mallampati: Class I Dentition: full CV/HEM Atrial Fibrillation, Congestive Heart Failure and Hypertension Mod MVR Metabolic Diabetes Mellitus and Hyperlipidemia Anesthetic Plan ASA status: 3 Anesthesia: MAC Risk of > 500 ml blood loss (7ml/kg in children): No Medications/Allergies Home Medications Medication Instructions Recorded Confirmed Last Taken Type biotin 10,000 mcg capsule 10,000 mcg PO .ONCE DAILY 11/25/19 07/11/23 07/12/23 History cetirizine 10 mg capsule (Zyrtec) 10 mg PO .ONCE DAILY PRN Allergic 11/25/19 07/11/23 03/05/22 History Symptoms albuterol sulfate 90 mcg/actuation 1 puff inhalation QID PRN 04/12/23 07/11/23 Unknown Rx aerosol inhaler shortness of breath or wheezing #8.5 grams carvedilol 12.5 mg tablet 12.5 mg PO BID 90 days #180 tabs 04/12/23 07/11/23 07/12/23 Rx citalopram 40 mg tablet 40 mg PO DAILY #90 tabs 04/12/23 07/11/23 07/12/23 Rx atorvastatin 20 mg tablet 20 mg PO .at bedtime #90 tabs 09/07/11/23 07/12/23 Rx furosemide 20 mg tablet 20 mg PO BID edema #180 tabs 06/05/23 07/13/23 07/12/23 Rx potassium chloride 20 mEq 20 meq PO DIRECTED #135 tabs 06/06/23 07/13/23 07/12/23 Rx tablet,extended release lisinopril 20 mg tablet See Rx Instructions .Route 06/28/23 07/13/23 07/12/23 Rx .COMPLEX #60 tabs apixaban 5 mg tablet (Eliquis) 5 mg PO BID@0900,2100 30 days #180 07/02/23 07/11/23 07/13/23 Rx tabs diltiazem HCl 180 mg 180 mg PO Q12H 30 days #180 tabs 07/02/23 07/13/23 07/12/23 Rx tablet,extended release 24 hr (Cardizem LA) Allergies Allergy/AdvReac Type Severity Reaction Status Date / Time No Known Allergies Allergy Verified 07/05/23 15:06 [facility] Anesthesia Medical History Abnormal pulse oximetry Shortness of Breath Essential hypertension Surgical History H/O foot surgery History of cholecystectomy H/O cataract extraction Social History Smoking and tobacco/nicotine status: never used tobacco/nicotine Data Anesthesia Cardiac Studies: Echocardiogram 05/21/23 Cardiac Event Monitor 06/06/23
--- NOTE | 2023-07-13 11:03 | USCV_ITS ---
Lianet Combs Age: 73 Gender: F : 1950 Exam Date: 07/13/2023 12:13 Ordering Phys: Elías Bonilla M.D ([email or web address]) Technologist: ELAINA [place] [facility] [place]ication: A FIB WITH CV BP: 160 / 129 HR: 120 Rhythm: Sinus Technical Quality: Adequate MEASUREMENTS (Male / Female) Normal Values Medications Complications None Proc. Components After anesthesia team administered sedation, we proceeded with HAYDEN probe insertion. However patient had stridor with use of accessory muscles post sedation. We only had taken 1 image of the heart and pulled out the probe to allow anesthesia manage airway. Once she was stabilized, we inserted a probe again. We focuessed on ruling out BOLA thrombus given patient's airway, other images were not obtained in detail. FINDINGS Left Ventricle Normal in size and function Right Ventricle Normal in size and function Right Atrium Gorssly normal Left Atrium Dilated LA Appendage No thrombus seen in the left atrial appendage IA Septum Grossly normal Mitral Valve Grossly normal. Moderate to severe mitral regurgitation Aortic Valve Structurally normal Tricuspid Valve Grossly normal Pulmonic Valve Not well visualized Pericardium Normal Aorta Grossly normal CONCLUSIONS Left ventricle is normal in size and function. Left atrial dilation seen. No thrombus seen in left atrial appendage Moderate to severe mitral regurgitation Elías Bonilla MD (Electronically Signed) Final Date: 16 July 2023 13:35 S
[2023-07-13] MEDS: sodium chloride 0.9% 1,000 ML 30 ML IV (11:04)
--- NOTE | 2023-07-13 11:44 | W.PM.OPSUD ---
Surgery/Procedure H&P Update DATE OF PROCEDURE: July 13, 2023 DATE H&P PERFORMED: 07/05/23 H&P UPDATE INFORMATION: I have reviewed H&P completed within last 30 days, I have examined patient prior to procedure and No changes to prior documentation PREOP DIAGNOSIS: Atrial fibrillation with RVR PRIMARY INDICATION FOR PROCEDURE: Atrial fibrillation with RVR PLANNED PROCEDURE: Operation Date: 07/13/23 12:00 Proposed Procedures p HAYDEN/Cardioversion [id number],I48.91(Not Applicable) - Elías Bonilla M.D s Cardioversion(Not Applicable) - Elías Bonilla M.D Anesthesia team administering sedation PATIENT REASSESSED PRIOR TO SEDATION, WITH NO CHANGE NOTED: Yes PHYSICAL EXAM: alert, oriented x 3 and clear to auscultation bilaterally OTHER PERTINENT EXAM FINDINGS: Irregularly irregular, tachycardia
--- NOTE | 2023-07-13 12:35 | SUR.OPER ---
patient cardioverted with 200j one time resulting in sinus rhythm
[2023-07-13 12:43] VITALS: BP 137/80; PULSE 81; RESP 18; TEMP 36.1; O2SAT 91
[2023-07-13 12:50] VITALS: BP 139/84; PULSE 82; RESP 18; O2SAT 95
--- NOTE | 2023-07-13 12:51 | ECG_ITS ---
[facility] Test Date: 2023-07-13 Pat Name: Lianet Combs Department: Room: Gender: Female Imaging Analyst: : 1950 Requested By: Elías Bonilla Order Number: [id number] Gaby MD: Erik Yee M.D. Measurements Intervals Cuervo Rate: 84 P: 76 NH: 190 QRS: 5 QRSD: 97 T: 40 QT: 387 QTc: 457 Interpretive Statements SINUS RHYTHM NONSPECIFIC T-WAVE ABNORMALITY Compared to ECG 07/13/2023 10:42:29 Atrial fibrillation no longer present T-wave abnormality still present Electronically Signed On 07-13-2023 13:44:58 CUTTING SUPERVISOR by Erik Yee M.D. [id number]
--- NOTE | 2023-07-13 12:52 | P.PCN_ITS ---
Procedure Note: Date of procedure: 07/13/23 Pre-procedure diagnosis: Atrial fibrillation with RVR Post-procedure diagnosis: other (Normal sinus rhythm) Procedure: Transesophageal echocardiogram/cardioversion : After anesthesia team administered sedation, we proceeded with HAYDEN probe insertion. However patient had stridor with use of accessory muscles post sedation. We only had taken 1 image of the heart and pulled out the probe to allow anesthesia manage airway. Once she was stabilized, we inserted a probe again and confirmed no left atrial appendage thrombus. We then proceeded with synchronized DCCV with 200 J of marcella rgy. She converted back to normal sinus rhythm with 1 shock. Performing Provider: Elías Bonilla Complications: None Condition: stable Disposition: same day Coding Level of Care Code Acute Code for Dharmesh Basilio
[2023-07-13 13:00] VITALS: BP 132/87; PULSE 84; RESP 18; O2SAT 93
[2023-07-13 13:10] VITALS: BP 129/88; PULSE 84; RESP 18; O2SAT 93
--- NOTE | 2023-07-13 14:47 | ANE.PACU2 ---
Inpatient post-anesthesia follow up: Airway intact: Yes Vital signs: Temperature 97.0 F Pulse Rate 84 Respiratory Rate 18 Blood Pressure 129/88 Pulse Oximetry 93 Oxygen Delivery Me thod Room Air Oxygen Flow Rate Fraction of Inspir ed Oxygen Hydration adequate: Yes Nausea and vomiting: No Pain level: 1 Mental status: Baseline
== END 2023-07-13 13:37 | disposition home or self-care (01) ==
PROVIDERS: PCP Family Medicine; Visit Provider Internal Medicine
PROC: (CPT 93312; principal; 2023-07-13 12:00)
PROC: 5A2204Z Restoration of Cardiac Rhythm, Single (ICD-10-PCS; 2023-07-13 12:00)
DX: I48.91 Unspecified atrial fibrillation (principal); I34.0 Nonrheumatic mitral (valve) insufficiency; I11.0 Hypertensive heart disease with heart failure; I50.9 Heart failure, unspecified; E11.9 Type 2 diabetes mellitus without complications; E78.5 Hyperlipidemia, unspecified
CPT/HCPCS: 76937; 92960; 93005; 93312; 93320; 93325; J2704; J7030

== ENCOUNTER → 2023-07-27 08:44 | Outpatient (BNVA) | payer MEDICARE, OTHER, SELFPAY | PROVIDERS: PCP Family Medicine; Visit Provider Nurse Practitioner Family | DX: I48.91 Unspecified atrial fibrillation (principal); I10 Essential (primary) hypertension; R94.31 Abnormal electrocardiogram [ECG] [EKG] | CPT/HCPCS: 93005; 99214 ==

== ENCOUNTER → 2023-09-04 12:08 | Outpatient (BNVA) | payer MEDICARE, OTHER, SELFPAY | PROVIDERS: PCP Family Medicine; Visit Provider Internal Medicine | DX: I48.91 Unspecified atrial fibrillation (principal); I10 Essential (primary) hypertension; Z79.01 Long term (current) use of anticoagulants | CPT/HCPCS: 99214 ==

== ENCOUNTER → 2023-12-16 16:35 | Outpatient (BNVA) | payer MEDICARE, OTHER, SELFPAY | PROVIDERS: PCP Family Medicine; Visit Provider Emergency Medicine | DX: R09.81 Nasal congestion (principal); J18.9 Pneumonia, unspecified organism | CPT/HCPCS: 87400 ==

== ENCOUNTER → 2024-01-16 10:31 | Outpatient (BNVA) | payer MEDICARE, OTHER, SELFPAY | PROVIDERS: PCP Family Medicine; Visit Provider Nurse Practitioner | DX: R05.9 Cough, unspecified (principal) | CPT/HCPCS: 71046 ==

== ENCOUNTER 2024-02-26 20:00 | Outpatient (CLI) | payer MEDICARE, OTHER, SELFPAY | END 2024-02-26 20:01 | disposition home or self-care (01) | LOC: SLEEP 22:43 | PROVIDERS: PCP Family Medicine Adult Medicine; Visit Provider Family Medicine | DX: G47.33 Obstructive sleep apnea (adult) (pediatric) (principal) | CPT/HCPCS: 95810 ==

== ENCOUNTER → 2024-03-04 12:11 | Outpatient (BNVA) | payer MEDICARE, OTHER, SELFPAY | PROVIDERS: PCP Family Medicine Adult Medicine; Visit Provider Internal Medicine | DX: I48.91 Unspecified atrial fibrillation (principal); I10 Essential (primary) hypertension; Z79.01 Long term (current) use of anticoagulants | CPT/HCPCS: 99214 ==

== ENCOUNTER 2024-07-04 08:48 | Outpatient (CLI) | payer MEDICARE, OTHER, SELFPAY ==
--- NOTE | 2024-07-04 08:51 | MM_ITS ---
WS: [id number] BILATERAL SCREENING DIGITAL TOMOSYNTHESIS MAMMOGRAM WITH CAD HISTORY: SCREENING COMPARISON: 01/01/2023, 12/02/2021 Bilateral CC and MLO views with tomosynthesis and synthetic mammography submitted. Computer aided det ection analyzed. Breast composition: There are scattered areas of fibroglandular density. No suspicious masses, microc alcifications or architectural distortion. Difficulty positioning patient. Neither pectoralis muscle is well included. MM/MM scr tomosynthesis [id number] IMPRESSION: BI-RADS: 2 - Benign. FOLLOW UP: 1 Year Follow-up
== END 2024-07-04 08:49 | disposition home or self-care (01) ==
LOC: RAD 08:49
PROVIDERS: PCP Family Medicine; Visit Provider Family Medicine
DX: Z12.31 Encounter for screening mammogram for malignant neoplasm of breast (principal); R92.323 Mammographic fibroglandular density, bilateral breasts
CPT/HCPCS: 77063; 77067

== ENCOUNTER 2024-09-09 20:00 | Outpatient (CLI) | payer MEDICARE, OTHER, SELFPAY | END 2024-09-09 20:01 | disposition home or self-care (01) | LOC: SLEEP 22:29 | PROVIDERS: PCP Family Medicine; Visit Provider Family Medicine Adult Medicine | DX: G47.33 Obstructive sleep apnea (adult) (pediatric) (principal) | CPT/HCPCS: 95811 ==

== ENCOUNTER → 2024-10-03 09:39 | Outpatient (BNVA) | payer MEDICARE, OTHER, SELFPAY | PROVIDERS: PCP Family Medicine; Visit Provider Nurse Practitioner Family | DX: I48.91 Unspecified atrial fibrillation (principal); I13.0 Hypertensive heart and chronic kidney disease with heart failure and stage 1 through stage 4 chronic kidney disease, or unspecified chronic kidney disease; N18.2 Chronic kidney disease, stage 2 (mild); I50.9 Heart failure, unspecified; Z79.01 Long term (current) use of anticoagulants | CPT/HCPCS: 99213 ==

== ENCOUNTER → 2025-04-13 15:41 | Outpatient (BNVA) | payer MEDICARE, OTHER, SELFPAY | PROVIDERS: PCP Family Medicine; Visit Provider Internal Medicine | DX: I48.20 Chronic atrial fibrillation, unspecified (principal); Z79.01 Long term (current) use of anticoagulants; I10 Essential (primary) hypertension | CPT/HCPCS: 99214 ==